=== PATIENT | male | born 1945 | race Caucasian/White ===

== ENCOUNTER 2020-02-07 12:38 | Inpatient (IN) | payer MEDICARE, SELFPAY ==
[2020-02-07 12:53] VITALS: PULSE 86; RESP 16; O2SAT 95; BMI 26.6
[2020-02-07 13:03] VITALS: BMI 26.6
[2020-02-07 13:05] VITALS: BP 152/79; PULSE 86; RESP 16; TEMP 37; O2SAT 95
--- NOTE | 2020-02-07 14:43 | PCM.HP.STD ---
Problem List (1) Debility Status: Acute (2) Pneumoperitoneum Status: Acute (3) Gastric perforation Status: Acute (4) Acute blood loss anemia Status: Acute (5) Septic shock Status: Acute (6) Hypertension Status: Chronic (7) Coronary artery disease Status: Chronic (8) Osteoarthritis Status: Chronic (9) Hyperlipidemia Status: Chronic (10) Diabetes mellitus Status: Chronic (11) Depression Status: Chronic (12) Hypothyroidism Status: Chronic History of Present Illness Date of Admission: 02/07/20 Chief Complaint: Here for rehabilitation, strengthening, prior to discharge home with . The patient is a 74 year old Male with below past medical history with followin01/26/2020 Admit to [facility]. Right lower quadrant abdominal pain, progressively worse at outside hospital. CT scan abdomen/pelvis showed air, fluid in abdomen. 6 Liters IV fluids, 3 units PRBC, 2 units Fresh Frozen Plasma for Hemoglobin 4.5. COVID negative. Fentanyl 175MCG, Morphine 4MG, Ancef given prior to transfer to [facility]. 01/26/2020 Operating Room revealed large perforation at pylorus. Modified Tanmay patch repair with pyloroplasty. 01/27/2020 Echo Left ventricle normal. EF 43%. Left ventricular systolic function mildly decreased. Grade 1 diastolic dysfunction. Right ventricular systolic pressure 50mm HG. 01/28/2020 Tube feeding. 01/28/2020 Troponin elevated due to demand ischemia. Stop IV fluids due to fluid overload. 01/28/2020 Infectious Disease consulted, on Meropenem, Micafungin. Culture grew Leclercia Adecarboxylata Micafungin 5 days postop. Continue Meropenem. 02/02/2020 Infectious Disease recommended IV Unasyn, Probiotic. Tube feeding at 60ML/hour. Replete phosphorus. Zyprexa for agitation. 02/07/2020 Admit to TCU with debility, here for rehabilitation, strengthening, prior to discharge home with . Past Medical History Past Medical History (Chronic Problems): Chronic Problems Hypertension (Chronic) Coronary artery disease (Chronic) Osteoarthritis (Chronic) Hyperlipidemia (Chronic) Diabetes mellitus (Chronic) Depression (Chronic) Hypothyroidism (Chronic) Home Medications: Ambulatory Orders Medication Instructions Recorded Acetaminophen [Tylenol] 325 mg PO Q4H PRN PRN 02/07/20 Aspirin E.C. [Ecotrin] 81 mg PO DAILY@0800 05/23/20 Aspirin E.C. [Ecotrin] 325 mg PO DAILY@0800 02/07/20 Atorvastatin Calcium [Lipitor] 80 mg PO DAILY 02/07/20 Ciprofloxacin [Cipro] 500 mg PO BID 02/07/20 Cod Liver Oil/Zinc Oxide [Desitin 1 applicatio TOPICAL PRN 02/07/20 Diaper Rash 40% Paste] Dextrose 5%/0.9% NaCl 25 ml IV PRN 02/07/20 Dextrose [Trueplus Glucose] 15 gm PO PRN 02/07/20 Enalapril Maleate [Vasotec] 5 mg PO DAILY 02/07/20 Escitalopram Oxalate [Lexapro] 10 mg PO DAILY 02/07/20 Glucagon [(None)] 1 mg IM PRN 02/07/20 Heparin Sodium,Porcine/Pf [Heparin 5,000 unit SUBCUT BID 02/07/20 5 Unit/5 ml (1/ml) Syr] Insulin Regular, Human [Novolin R See Protocol SUBCUT ACHS 02/07/20 Flexpen] L. Rhamnosus GG/Inulin [Culturelle 1 ea PO DAILY 02/07/20 Probiotics Capsule] Levothyroxine [Synthroid] 75 mcg PO DAILY 02/07/20 Metoprolol Succinate [Toprol Xl] 25 mg PO BID 02/07/20 Metoprolol Succinate [Toprol Xl] 50 mg PO DAILY 02/07/20 Metoprolol Tartrate 5 mg IV Q4H PRN PRN 02/07/20 Metronidazole [Flagyl] 500 mg PO TID 02/07/20 Mupirocin [Bactroban] 1 applic TOPICAL BID 02/07/20 Olanzapine [Zyprexa Zydis] 0.5 mg PO QHS PRN 02/07/20 Ondansetron [Zofran] 4 mg IV Q4H PRN PRN 02/07/20 Oxycodone HCl [Roxicodone] 5 mg PO [id number] PRN 02/07/20 Pantoprazole Sodium [Protonix] 40 mg PO DAILY 02/07/20 metFORMIN HCl [Glucophage] 500 mg PO BIDCM 02/07/20 Surgical History: angioplasty - Stent x 2., - - Arthroscopic knee surgery. Psychiatric History: Depression Lives: Spouse/ Significant Other Smoking Status: Former smoker Tobacco Use: Cigars Alcohol: Occasional Drugs: None - *Family History Maternal History Items: Heart Disease, - - Hypothyroidism. Paternal History Items: Heart Disease Sibling History Items: - - Thyroid. Review of Systems Constitutional: Denies: Chills, Fever, Weight Change HEENT: Denies: Head Aches, Sinus Congestion, Sinus Drainage Cardiovascular: Denies: Chest Pain, Palpitations Respiratory: Denies: Cough, Shortness of breath at rest, Sputum production Gastrointestinal: Denies: Abdominal Pain, Nausea, Vomiting Genitourinary: Denies: Dysuria Musculoskeletal: Denies: Joint Pain, Joint Tenderness Skin: Denies: Rash, Wounds Neurological: Denies: Numbness, Tingling, Focal weakness Psychiatric: Denies: Anxiety, Depression, Homicidal Ideations, Suicidal Ideations Hematologic/ Lymphatic: Denies: Easy Bruising, Easy Bleeding VTE Information - Inpt Only VTE Present on Admission: No VTE Mechan Device Prophylaxis: Knee High NEIDA Hose VTE Pharm Prophylaxis ordered?: Yes Patient Problems: Active and Suspected Problems Debility (Acute) Pneumoperitoneum (Acute) Gastric perforation (Acute) Acute blood loss anemia (Acute) Septic shock (Acute) - Physical Exam Vitals/I&O's: Vital Signs Temp Pulse Resp BP Pulse Ox 98.6 F 86 16 152/79 H 95 02/07/20 13:05 02/07/20 13:05 02/07/20 13:05 02/07/20 13:05 02/07/20 13:05 Oxygen Delivery Method Room Air Weight: 81.42 kg Body Mass Index (BMI) 26.6 General: Alert, Oriented x3, Cooperative HEENT: Atraumatic, PERRLA, EOMI, Normocephalic Neck: Supple, No JVD, Negative Carotid Bruits Lungs: Clear to auscultation, Normal air movement Cardiovascular: Regular rate, No murmurs Abdomen: Bowel Sounds Present, Soft, Non Tender Extremities: No edema, Capillary Refill Less than 3 Seconds Skin: No rashes, No breakdown Musculoskeletal: No Tenderness to Palpation of Joints or Extremities Neurological: Cranial nerves II-XII grossly intact Psych/Mental Status: Normal Affect, Appropriate Current Medications Aspirin (Ecotrin) 81 mg PO DAILY@0800 [facility] Aspirin (Ecotrin) 325 mg PO DAILY@0800 [facility] Atorvastatin Calcium (Lipitor) 80 mg PO DAILY [facility] Ciprofloxacin HCl (Cipro) 500 mg PO BID [facility] Dextrose/Sodium Chloride (Dextrose 5%/0.9% Nacl) 25 ml IV DAILY PRN PRN Reason: Low blood sugar Glucagon () 1 mg IM DAILY PRN PRN Reason: Blood glucose Levothyroxine Sodium (Synthroid) 75 mcg PO DAILY [facility] Metformin [facility]ophage) [address] [facility] Metoprolol Succinate (Toprol Xl (Beta Carmelina)) 50 mg PO DAILY [facility] Metoprolol Succinate (Toprol Xl (Beta Carmelina)) 25 mg PO BID [facility] Metoprolol Tartrate (Lopressor (Beta Carmelina)) 5 mg IV Q4H PRN PRN PRN Reason: BLOOD PRESSURE Metronidazole (Flagyl) 500 mg PO TID [facility] Mupirocin (Bactroban) 1 applic TOPICAL BID [facility]; Protocol Non-Formulary Medication (Acetaminophen [Tylenol]) 325 mg PO Q4H PRN PRN PRN Reason: Pain or Fever Non-Formulary Medication (Cod Liver Oil/Zinc Oxide [Desitin Diaper Rash 40% Paste]) 1 applicatio topical DAILY PRN PRN Reason: skin Non-Formulary Medication (Dextrose [Trueplus Glucose]) 15 gm PO DAILY PRN PRN Reason: low blood sugar Non-Formulary Medication (Heparin Sodium,Porcine/Pf [Heparin 5 Unit/5 Ml (1/Ml) Syr]) 5,000 unit subcut BID [facility] Non-Formulary Medication (Insulin Regular, Human [Novolin R Flexpen]) 0 unit subcut ACHS [facility] Non-Formulary Medication (L. Rhamnosus Gg/Inulin [Culturelle Digest 10b Cell Cap]) 1 ea PO DAILY [facility] Olanzapine (Zyprexa Zydis) 0.5 mg PO QHS PRN PRN Reason: INSOMNIA Ondansetron HCl (Zofran) 4 mg IV Q4H PRN PRN PRN Reason: NAUSEA Oxycodone HCl (Oxyir) 5 mg PO [id number] PRN PRN Reason: Pain or Fever Pantoprazole Sodium (Protonix) 40 mg PO DAILY [facility] Tuberculin PPD (Tubersol, Aplisol, Ppd) 5 tu ID X1 ONE Stop: 02/08/20 10:01 Tuberculin PPD (Tubersol, Aplisol, Ppd) 5 tu ID X1 ONE Stop: 02/15/20 10:01 Assessment/Plan All Active Problems Debility (Acute) Pneumoperitoneum (Acute) Gastric perforation (Acute) Acute blood loss anemia (Acute) Septic shock (Acute) 74 year old male with below past medical history hospitalized for gastric perforation, underwent Tanmay patch repair with pyloroplasty 01/26/2020, admitted to TCU with debility, here for rehabilitation, strengthening, prior to discharge home with . Debility - PT/OT. Pain - Tylenol 1000MG Q6H PRN pain (1-3), Oxycodone 5MG Q4H PRN pain (4-10). Bowel - Miralax 17GM daily, Senna/colace 1 tablet BID, Dulcolax 10MG daily PRN. Adult immunization - Administer Prevnar 13, Pneumovax 23, Fluzone as appropriate. DVT prophylaxis - Lovenox 40MG SC daily. Coronary Artery Disease - Metoprolol succinate 75MG AM, 25MG PM, Aspirin 81MG daily. Hyperlipidemia - Atorvastatin 80MG QHS. Infectious Disease - Cipro 500MG BID, Flagyl 500MG TID x 4 days, Lactobacillus 1 tablet daily. Hypothyroidism - Levothyroxine 75MCG daily. Diabetes Mellitus II - Metformin 500MG BID. Skin irritation - Bacitracin ointment topical BID. Agitation - Zyban 0.5MG QHS PRN, GDR shortly. Nausea - Zofran 4MG IV Q4H PRN. GERD - Pantoprazole 40MG daily.
[2020-02-07] MEDS: metroNIDAZOLE 500 MG Tablet PO ×2 (16:05→20:32)
[2020-02-07 17:00] LABS: Bedside Glucose 88 mg/dL (70-110)
[2020-02-07] MEDS: Mupirocin Ointment 22gm Tube 1 APPLIC TOPICAL (17:18)
[2020-02-07] MEDS: Senna/Docusate Sodium 1 Tablet PO (17:18)
[2020-02-07] MEDS: metFORMIN HCl 500 MG Tablet PO (17:18)
[2020-02-07] MEDS: Ciprofloxacin 500 MG Tablet PO (17:18)
[2020-02-07] MEDS: OLANZapine 5 MG/TAB TAB.RAPDIS 2.5 MG PO (20:34)
[2020-02-07 21:21] LABS: Bedside Glucose 117 mg/dL (70-110)
[2020-02-08] MEDS: Atorvastatin Calcium 80 MG Tablet PO (05:13)
[2020-02-08] MEDS: Senna/Docusate Sodium 1 Tablet PO (05:13)
[2020-02-08 05:14] VITALS: BP 145/76; PULSE 79
[2020-02-08] MEDS: Levothyroxine 75 MCG Tablet PO (05:14)
[2020-02-08] MEDS: Enoxaparin 40 MG/0.4 ML Syringe SC (05:14)
[2020-02-08] MEDS: metroNIDAZOLE 500 MG Tablet PO ×3 (05:14→21:42)
[2020-02-08] MEDS: Ciprofloxacin 500 MG Tablet PO ×2 (05:14→17:15)
[2020-02-08] MEDS: Polyethylene Glycol 3350 17 GM PACKET PO (05:14)
[2020-02-08] MEDS: Metoprolol(XL)Succ 50 MG Tablet PO (05:14)
[2020-02-08] MEDS: Glucerna Shake 120 ML LIQUID PO ×4 (05:17→21:41)
[2020-02-08] MEDS: Mupirocin Ointment 22gm Tube 1 APPLIC TOPICAL ×2 (05:18→17:16)
[2020-02-08] MEDS: Pantoprazole Sodium 40 MG Tablet PO (05:19)
[2020-02-08 05:24] VITALS: BP 145/76; PULSE 79; RESP 16; TEMP 36.4; O2SAT 94
[2020-02-08 06:21] LABS: Bedside Glucose 100 mg/dL (70-110)
[2020-02-08 06:27] LABS: Absolute Lymphocyte Count 0.87 X10^3/uL (0.83-4.51); Absolute Neutrophil Count 2.8 X10^3/uL (2.0-7.7); Basophil# 0.05 X10^3/uL; Basophil% 1.1 % (0-1); Eosinophil# 0.21 X10^3/uL; Eosinophils% 4.8 % (0-5); Hematocrit 31.9 % (40-54); Hemoglobin 9.3 g/dL (13.0-16.5); Lymphocyte # 0.87 X10^3/ul (4.0); Mean Corp Hgb Conc 29.2 g/dL (32-36); Mean Corpuscular Hgb 23.7 pg (27.0-32.0); Mean Corpuscular Volume 81.4 fL (80-94); Mean Platelet Vol. 10.6 fl (6.2-12.0); Monocyte# 0.36 X10^3/uL; Monocyte% 8.3 % (0-10); NRBC Flagged by Analyzer 0 % (0-5); Neutrophil # 2.84 X10^3/uL (2.7-7.7); Neutrophil % 65.1 % (47-70); POSITIVE MORPHOLOGY YES; Platelet Count 447 K/mm3 (150-450); Red Blood Count 3.92 M/mm3 (4.6-6.2); White Blood Count 4.4 K/mm3 (4.4-11.0)
[2020-02-08 06:28] LABS: Differential Indicated SCAN CRITERIA MET
[2020-02-08 06:35] LABS: Anion Gap 6 (5-15); BUN 16 mg/dL (7-18); BUN/Creat Ratio 18.8 RATIO (10-20); Calcium,Total 8.7 mg/dL (8.5-10.1); Chloride 110 mmol/L (98-107); Creatinine, Serum 0.85 mg/dL (0.70-1.30); EST Glomerular Filtration Rate 93 mL/min (>60); Est Glom Filt Rate - Afr Amer 113 mL/min (>60); Estimated Creatinine Clearance 74.88 ml/min; Glucose 95 mg/dL (74-106); Potassium 4.1 mmol/L (3.5-5.1); Sodium Level 139 mmol/L (136-145)
[2020-02-08 06:43] LABS: Anisocytosis 2+; Differential Comment SCANNED; Hypochromasia 1+; Macrocytosis RARE; Microcytosis RARE; Poikilocytosis 2+; Polychromasia 1+
[2020-02-08 06:44] LABS: Ovalocyte RARE
[2020-02-08] MEDS: Aspirin E.C. 81 MG Tablet PO (07:33)
[2020-02-08] MEDS: metFORMIN HCl 500 MG Tablet PO ×2 (07:33→17:15)
[2020-02-08] MEDS: Tuberculin,Purif.prot.deriv. 50 TU/ML Vial 5 ML ID (10:35)
[2020-02-08 11:31] LABS: Bedside Glucose 92 mg/dL (70-110)
[2020-02-08 14:29] VITALS: BP 128/63; PULSE 77; RESP 20; TEMP 36.7; O2SAT 96
[2020-02-08 16:16] LABS: Bedside Glucose 93 mg/dL (70-110)
[2020-02-08] MEDS: Acetaminophen 500 MG Tablet 1000 MG PO (21:45)
[2020-02-08 21:51] LABS: Bedside Glucose 143 mg/dL (70-110)
--- NOTE | 2020-02-09 00:32 | NURSING ---
changed dressings per order, pt tolerated well.
[2020-02-09 05:26] VITALS: BP 164/89; PULSE 80; RESP 14; TEMP 36.8; O2SAT 97
[2020-02-09 05:33] VITALS: BP 164/89; PULSE 80
[2020-02-09] MEDS: Senna/Docusate Sodium 1 Tablet PO (05:33)
[2020-02-09] MEDS: Metoprolol(XL)Succ 50 MG Tablet PO (05:33)
[2020-02-09] MEDS: Levothyroxine 75 MCG Tablet PO (05:33)
[2020-02-09] MEDS: metroNIDAZOLE 500 MG Tablet PO ×3 (05:33→21:05)
[2020-02-09] MEDS: Enoxaparin 40 MG/0.4 ML Syringe SC (05:33)
[2020-02-09] MEDS: Atorvastatin Calcium 80 MG Tablet PO (05:33)
[2020-02-09] MEDS: Ciprofloxacin 500 MG Tablet PO ×2 (05:33→17:33)
[2020-02-09] MEDS: Polyethylene Glycol 3350 17 GM PACKET PO (05:33)
[2020-02-09] MEDS: Pantoprazole Sodium 40 MG Tablet PO (05:33)
[2020-02-09] MEDS: Glucerna Shake 120 ML LIQUID PO ×4 (05:33→21:04)
[2020-02-09] MEDS: Mupirocin Ointment 22gm Tube 1 APPLIC TOPICAL ×2 (05:35→17:34)
[2020-02-09 06:41] LABS: Bedside Glucose 92 mg/dL (70-110)
[2020-02-09] MEDS: metFORMIN HCl 500 MG Tablet PO ×2 (07:42→17:33)
[2020-02-09] MEDS: Aspirin E.C. 81 MG Tablet PO (07:42)
[2020-02-09] MEDS: Iron Polysaccharide Complex 150 MG CAPSULE PO (07:42)
[2020-02-09 09:04] VITALS: PULSE 80; RESP 16; O2SAT 98
[2020-02-09 11:25] LABS: Bedside Glucose 129 mg/dL (70-110)
--- NOTE | 2020-02-09 12:47 | NURSING ---
Call placed to patients significant other, no answer and unable to leave a message d/t voicemail not being setup.
[2020-02-09 14:29] VITALS: BP 138/71; PULSE 76; RESP 14; TEMP 36.6; O2SAT 97
[2020-02-09 17:05] LABS: Bedside Glucose 107 mg/dL (70-110)
[2020-02-09 21:30] LABS: Bedside Glucose 103 mg/dL (70-110)
[2020-02-10 04:23] VITALS: BP 135/65; PULSE 74; RESP 16; TEMP 36.9; O2SAT 95
[2020-02-10 06:01] VITALS: PULSE 80
[2020-02-10] MEDS: Levothyroxine 75 MCG Tablet PO (06:01)
[2020-02-10] MEDS: Enoxaparin 40 MG/0.4 ML Syringe SC (06:01)
[2020-02-10] MEDS: Metoprolol(XL)Succ 50 MG Tablet PO (06:01)
[2020-02-10] MEDS: Ciprofloxacin 500 MG Tablet PO ×2 (06:02→17:37)
[2020-02-10] MEDS: Atorvastatin Calcium 80 MG Tablet PO (06:02)
[2020-02-10] MEDS: Senna/Docusate Sodium 1 Tablet PO ×2 (06:02→17:37)
[2020-02-10] MEDS: Polyethylene Glycol 3350 17 GM PACKET PO (06:03)
[2020-02-10] MEDS: metroNIDAZOLE 500 MG Tablet PO ×3 (06:04→21:13)
[2020-02-10] MEDS: Mupirocin Ointment 22gm Tube 1 APPLIC TOPICAL (06:05)
[2020-02-10] MEDS: Glucerna Shake 120 ML LIQUID PO ×4 (06:09→21:37)
[2020-02-10] MEDS: Menthol/Lanolin/Calamine/Znox 113 GM Tube 1 APPLIC TOPICAL ×2 (06:10→21:13)
[2020-02-10 06:21] LABS: Bedside Glucose 90 mg/dL (70-110)
[2020-02-10] MEDS: Pantoprazole Sodium 40 MG Tablet PO (06:52)
--- NOTE | 2020-02-10 08:12 | PCM.PN.RX ---
<Elijah Oden C - Last Filed: 02/10/20 08:12> Progress Note - Pharmacy Subjective: [] TCU Admission Objective: Allergies No Known Allergies Allergy (Verified 02/07/20 15:22) Current Medications Generic Name Dose Route Start Last Admin Trade Name Freq PRN Reason Stop Dose Admin Acetaminophen 1,000 mg 02/07/20 15:06 02/08/20 21:45 Tylenol PO 1,000 mg Q6H PRN PRN Administration Pain Score 1-3/10 Aspirin 81 mg 02/08/20 08:00 02/09/20 07:42 Ecotrin PO 81 mg DAILY@0800 TAYE Administration Atorvastatin Calcium 80 mg 02/08/20 06:00 02/10/20 06:02 Lipitor PO 80 mg DAILY TAYE Administration Bisacodyl 10 mg 02/07/20 15:09 Dulcolax PO DAILY PRN PRN Constipation Calamine/Phenol 1 applic 02/10/20 06:00 02/10/20 06:10 Calmoseptine Ointment TOPICAL 1 applicatio 0600,2200 TAYE Administration Protocol Ciprofloxacin HCl 500 mg 02/07/20 18:00 02/10/20 06:02 Cipro PO 02/11/20 06:01 500 mg BID TAYE Administration Enoxaparin Sodium 40 mg 02/08/20 06:00 02/10/20 06:01 Lovenox SC 40 mg DAILY@0600 TAYE Administration Glucagon 1 mg 02/07/20 13:53 IM DAILY PRN Blood glucose Lactobacillus Acidophilus 1 tablet 02/07/20 18:00 02/10/20 06:05 Acidophilus PO 1 tablet BID TAYE Administration Levothyroxine Sodium 75 mcg 02/08/20 06:00 02/10/20 06:01 Synthroid PO 75 mcg DAILY TAYE Administration Metformin HCl 500 mg 02/07/20 17:00 02/09/20 17:33 Glucophage PO 500 mg BIDCM TAYE Administration Metoprolol Succinate 50 mg 02/08/20 06:00 02/10/20 06:01 Toprol Xl (Beta Carmelina) PO 50 mg DAILY TAYE Administration Metronidazole 500 mg 02/07/20 14:00 02/10/20 06:04 Flagyl PO 02/11/20 06:01 500 mg TID TAYE Administration Mupirocin 1 applic 02/07/20 18:00 02/10/20 06:05 Bactroban TOPICAL 1 applicatio BID TAYE Administration Protocol Nutritional Formula (Lactose Free) 120 ml 02/08/20 06:00 02/10/20 06:09 Glucerna Shake PO 120 ml 4X/DAY TAYE Administration Olanzapine 2.5 mg 02/07/20 13:53 02/07/20 20:34 Zyprexa Zydis PO 2.5 mg QHS PRN Administration INSOMNIA Ondansetron HCl 4 mg 02/07/20 13:53 Zofran IV Q4H PRN PRN NAUSEA Oxycodone HCl 5 mg 02/07/20 15:09 Oxyir PO Q4H PRN PRN Pain Score 4-10/10 Pantoprazole Sodium 40 mg 02/08/20 06:00 02/10/20 06:52 Protonix PO 40 mg DAILY TAYE Administration Polyethylene Glycol 17 gm 02/08/20 06:00 02/10/20 06:03 Miralax PO 17 gm DAILY TAYE Administration Polysaccharide Iron Complex 150 mg 02/09/20 08:00 02/09/20 07:42 Ferrex 150 PO 03/10/20 08:01 150 mg DAILYCM TAYE Administration Senna/Docusate Sodium 1 tablet 02/07/20 18:00 02/10/20 06:02 Senokot-S, Celeste-Colace PO 1 tablet BID TAYE Administration Sodium Chloride 250 ml 02/07/20 18:49 IV PRN PRN IV flush Tuberculin PPD 5 tu 02/15/20 10:00 Tubersol, Aplisol, Ppd ID 02/15/20 10:01 X1 ONE Problem List Debility (Acute) Pneumoperitoneum (Acute) Gastric perforation (Acute) Acute blood loss anemia (Acute) Septic shock (Acute) Hypertension (Chronic) Coronary artery disease (Chronic) Osteoarthritis (Chronic) Hyperlipidemia (Chronic) Diabetes mellitus (Chronic) Depression (Chronic) Hypothyroidism (Chronic) Vital Signs Temp Pulse Resp BP Pulse Ox 98.4 F 80 16 135/65 H 95 02/10/20 04:23 02/10/20 06:01 02/10/20 04:23 02/10/20 04:23 02/10/20 04:23 Oxygen Delivery Method Room Air Weight: 81.42 kg Body Mass Index (BMI) 26.6 Sodium 139 mmol/L (136-145) 02/08/20 05:30 Potassium 4.1 mmol/L (3.5-5.1) 02/08/20 05:30 Chloride 110 mmol/L (98-107) H 02/08/20 05:30 Carbon Dioxide 23.0 mmol/L (21.0-32.0) 02/08/20 05:30 Anion Gap 6 (5-15) 02/08/20 05:30 BUN 16 mg/dL (7-18) 02/08/20 05:30 Creatinine 0.85 mg/dL (0.70-1.30) 02/08/20 05:30 Est GFR (MDRD) Af Amer 113 mL/min (>60) 02/08/20 05:30 Est GFR (MDRD) Non-Af 93 mL/min (>60) 02/08/20 05:30 BUN/Creatinine Ratio 18.8 RATIO (10-20) 02/08/20 05:30 Glucose 95 mg/dL (74-106) 02/08/20 05:30 Assessment/Plan: 1) Pain: Acetaminophen 1000mg po q6h prn for pain 1-3, Oxycodone 5mg po q4h prn for pain 4-06/26. Please continue to monitor prn usage and for signs/symptoms of increased pain. *2) Hyperlipidemia: Atorvastatin 80mg po daily. I could not find a recent LFT or Lipid Panel in the pt's chart. Please consider a yearly LFT and Lipid Panel while the pt is on a statin. Thanks *3) GERD: Pantoprazole 40mg po daily. retirement use of PPIs can impede vitamin absorption. Please consider a yearly magnesium level. Thanks 4) Diabetes: Metformin 500mg po bid with food. Pt's GFR is 93 and average BS is 104.9. Please continue to monitor. *5) Hypothyroidism: Levothyroxine 75mcg po daily. I could not find a recent TSH in the pt's chart. Please consider a TSH while the pt is on Levothyroxine. Thanks 6) Nausea: Ondansetron 4mg iv q4h prn for nausea. Please continue to monitor prn usage and for signs/symptoms of increased/decreased nausea. 7) CAD: Metoprolol Succinate 50mg po daily, Aspirin 81mg po daily. Pt's average BP is 146.4/76. Please continue to monitor. Pt's average pulse is 79.7. Please continue to monitor. 8) DVT Prophylaxis: Enoxaparin 40mg subq daily. Pt's SrCr is 0.85, CrCl is 74.88, and Plts are 447. Please continue to monitor *9) Hypertension (chronic): Pt has a listed diagnosis of Chronic Hypertension for which he took Enalapril 5mg po daily. Enalapril 5mg po daily was not continue to his current orders. CAPO-I are also renal protective in diabetic pt's. Please re-evaluate the need for Enalapril 5mg. Thanks Psychotropic Medications: *Agitation: Zyban 0.5mg po qhs prn. --Medication on the pt's MAR is ZYPREXA 2.5mg (0.5 Tablet of a 5mg tablet). Please re-evaluate whether the pt is to be on ZYBAN 0.5 MG or ZYPREXA 2.5 MG. Thanks Unnecessary Medications: Bowel Regimen: Bisacodyl 10mg po daily prn for constipation, Miralax 17gm po daily, Senna/Docusate 1 tablet po bid. Please continue to monitor prn usage and for signs/symptoms of constipation/diarrhea. Date of Note:: 02/10/20 - Provider Comments Provider responsibility: Provider responsible to enter orders to implement recommendations <Piero Pang Chi - Last Filed: 02/10/20 17:28> Progress Note - Pharmacy Subjective: [] Objective: Allergies No Known Allergies Allergy (Verified 02/07/20 15:22) Current Medications Generic Name Dose Route Start Last Admin Trade Name Freq PRN Reason Stop Dose Admin Acetaminophen 1,000 mg 02/07/20 15:06 02/10/20 13:44 Tylenol PO 1,000 mg Q6H PRN PRN Administration Pain Score 1-3/10 Aspirin 81 mg 02/08/20 08:00 02/10/20 09:10 Ecotrin PO 81 mg DAILY@0800 TAYE Administration Atorvastatin Calcium 80 mg 02/08/20 06:00 02/10/20 06:02 Lipitor PO 80 mg DAILY TAYE Administration Bisacodyl 10 mg 02/07/20 15:09 Dulcolax PO DAILY PRN PRN Constipation Calamine/Phenol 1 applic 02/10/20 06:00 02/10/20 06:10 Calmoseptine Ointment TOPICAL 1 applicatio 0600,2200 [facility] Administration Protocol Ciprofloxacin HCl 500 mg 02/07/20 18:00 02/10/20 06:02 Cipro PO 02/11/20 06:01 500 mg BID TAYE Administration Enoxaparin Sodium 40 mg 02/08/20 06:00 02/10/20 06:01 Lovenox SC 40 mg DAILY@0600 TAYE Administration Glucagon 1 mg 02/07/20 13:53 IM DAILY PRN Blood glucose Lactobacillus Acidophilus 1 tablet 02/07/20 18:00 02/10/20 06:05 Acidophilus PO 1 tablet BID [facility] Administration Levothyroxine Sodium 75 mcg 02/08/20 06:00 02/10/20 06:01 Synthroid PO 75 mcg DAILY TAYE Administration Metformin HCl 500 mg 02/07/20 17:00 02/10/20 09:10 Glucophage PO 500 mg BIDCM TAYE Administration Metoprolol Succinate 50 mg 02/08/20 06:00 02/10/20 06:01 Toprol Xl (Beta Carmelina) PO 50 mg DAILY TAYE Administration Metronidazole 500 mg 02/07/20 14:00 02/10/20 13:42 Flagyl PO 02/11/20 06:01 500 mg TID [facility] Administration Mupirocin 1 applic 02/07/20 18:00 02/10/20 06:05 Bactroban TOPICAL 1 applicatio BID [facility] Administration Protocol Nutritional Formula (Lactose Free) 120 ml 02/08/20 06:00 02/10/20 11:41 Glucerna Shake PO 120 ml 4X/DAY TAYE Administration Olanzapine 2.5 mg 02/07/20 13:53 02/07/20 20:34 Zyprexa Zydis PO 2.5 mg QHS PRN Administration INSOMNIA Ondansetron HCl 4 mg 02/07/20 13:53 Zofran IV Q4H PRN PRN NAUSEA Oxycodone HCl 5 mg 02/07/20 15:09 Oxyir PO Q4H PRN PRN Pain Score 4-10/10 Pantoprazole Sodium 40 mg 02/08/20 06:00 02/10/20 06:52 Protonix PO 40 mg DAILY TAYE Administration Polyethylene Glycol 17 gm 02/08/20 06:00 02/10/20 06:03 Miralax PO 17 gm DAILY TAYE Administration Polysaccharide Iron Complex 150 mg 02/09/20 08:00 02/10/20 09:10 Ferrex 150 PO 03/10/20 08:01 150 mg DAILYCM TAYE Administration Senna/Docusate Sodium 1 tablet 02/07/20 18:00 02/10/20 06:02 Senokot-S, Celeste-Colace PO 1 tablet BID TAYE Administration Sodium Chloride 250 ml 02/07/20 18:49 IV PRN PRN IV flush Tuberculin PPD 5 tu 02/15/20 10:00 Tubersol, Aplisol, Ppd ID 02/15/20 10:01 X1 ONE Problem List Debility (Acute) Pneumoperitoneum (Acute) Gastric perforation (Acute) Acute blood loss anemia (Acute) Septic shock (Acute) Hypertension (Chronic) Coronary artery disease (Chronic) Osteoarthritis (Chronic) Hyperlipidemia (Chronic) Diabetes mellitus (Chronic) Depression (Chronic) Hypothyroidism (Chronic) Vital Signs Temp Pulse Resp BP Pulse Ox 97.7 F L 77 14 124/66 H 95 02/10/20 15:59 02/10/20 15:59 02/10/20 15:59 02/10/20 15:59 02/10/20 15:59 Oxygen Delivery Method Room Air Weight: 81.42 kg Body Mass Index (BMI) 26.6 Sodium 139 mmol/L (136-145) 02/08/20 05:30 Potassium 4.1 mmol/L (3.5-5.1) 02/08/20 05:30 Chloride 110 mmol/L (98-107) H 02/08/20 05:30 Carbon Dioxide 23.0 mmol/L (21.0-32.0) 02/08/20 05:30 Anion Gap 6 (5-15) 02/08/20 05:30 BUN 16 mg/dL (7-18) 02/08/20 05:30 Creatinine 0.85 mg/dL (0.70-1.30) 02/08/20 05:30 Est GFR (MDRD) Af Amer 113 mL/min (>60) 02/08/20 05:30 Est GFR (MDRD) Non-Af 93 mL/min (>60) 02/08/20 05:30 BUN/Creatinine Ratio 18.8 RATIO (10-20) 02/08/20 05:30 Glucose 95 mg/dL (74-106) 02/08/20 05:30 Assessment/Plan: Psychotropic Medications: Unnecessary Medications: Bowel Regimen: - Provider Comments Provider responsibility: Provider responsible to enter orders to implement recommendations Provider Comments to Recommendations by Pharmacy: Agree
[2020-02-10] MEDS: Iron Polysaccharide Complex 150 MG CAPSULE PO (09:10)
[2020-02-10] MEDS: metFORMIN HCl 500 MG Tablet PO ×2 (09:10→17:37)
[2020-02-10] MEDS: Aspirin E.C. 81 MG Tablet PO (09:10)
[2020-02-10 11:16] LABS: Bedside Glucose 114 mg/dL (70-110)
[2020-02-10] MEDS: Acetaminophen 500 MG Tablet 1000 MG PO (13:44)
[2020-02-10 15:59] VITALS: BP 124/66; PULSE 77; RESP 14; TEMP 36.5; O2SAT 95
[2020-02-10 17:11] LABS: Bedside Glucose 100 mg/dL (70-110)
[2020-02-10 21:15] LABS: Bedside Glucose 105 mg/dL (70-110)
[2020-02-10 21:35] VITALS: PULSE 72; RESP 16; O2SAT 98
[2020-02-11] MEDS: Glucerna Shake 120 ML LIQUID PO ×4 (06:08→21:02)
[2020-02-11] MEDS: Levothyroxine 75 MCG Tablet PO (06:09)
[2020-02-11] MEDS: Pantoprazole Sodium 40 MG Tablet PO (06:09)
[2020-02-11] MEDS: Ciprofloxacin 500 MG Tablet PO (06:09)
[2020-02-11 06:10] VITALS: PULSE 75
[2020-02-11] MEDS: Metoprolol(XL)Succ 50 MG Tablet PO (06:10)
[2020-02-11] MEDS: Mupirocin Ointment 22gm Tube 1 APPLIC TOPICAL (06:10)
[2020-02-11] MEDS: Atorvastatin Calcium 80 MG Tablet PO (06:10)
[2020-02-11] MEDS: Menthol/Lanolin/Calamine/Znox 113 GM Tube 1 APPLIC TOPICAL ×2 (06:11→21:02)
[2020-02-11] MEDS: metroNIDAZOLE 500 MG Tablet PO (06:13)
[2020-02-11] MEDS: Enoxaparin 40 MG/0.4 ML Syringe SC (06:14)
[2020-02-11 06:15] LABS: Bedside Glucose 89 mg/dL (70-110)
[2020-02-11 06:18] VITALS: BP 142/75; PULSE 75; RESP 16; TEMP 36.6; O2SAT 97
[2020-02-11] MEDS: metFORMIN HCl 500 MG Tablet PO ×2 (08:15→17:22)
[2020-02-11] MEDS: Aspirin E.C. 81 MG Tablet PO (08:15)
[2020-02-11] MEDS: Iron Polysaccharide Complex 150 MG CAPSULE PO (08:15)
[2020-02-11] MEDS: Acetaminophen 500 MG Tablet 1000 MG PO (10:28)
[2020-02-11 11:20] LABS: Bedside Glucose 120 mg/dL (70-110)
--- NOTE | 2020-02-11 11:38 | NURSING ---
PT STATED HE TALKED TO DAUGHTER AND THAT I DID NOT HAVE TO UP DATE ANY ONE.
[2020-02-11 13:20] VITALS: BP 98/63; PULSE 77; RESP 16; TEMP 36.8; O2SAT 95
--- NOTE | 2020-02-11 15:36 | CASEMGMT ---
Social Work IDT met with patient and daughter via conference call for care plan meeting. Discussed patient's progress in therapy. Pt is mod assist for transfers with FWW, ambulating 5 ft with FWW at min assist, min assist for bed mobility, total assist for all ADLS and toileting. Pt is incontinent of B&B which is not typical for pt, and needs some encouragement to get OOB. Pt's BIMS are 3/15 and dtr reported some memory issues prior to hospitalization. Referral made to for eval. Pt is enjoy FaceTiming with family, and 1:1 visits with Activities. Pt is on a regular, low fiber diet, mech soft and receiving med pass, weight is stable. Pt is out of room isolation 02/19. Pt lives with fiance' for the last 20 years and assists with medications, fiances' and yard work. She is petite so cannot assist physically. The goal is for pt to return home and family does not have an alternative plan. Explained insurance with [employer] 02/11 and continued stay is not guaranteed. Pt was able to walk with a cane and independent with toileting. Will continue to follow. Zoey Cordova, YESICA TREE DEADENER
[2020-02-11 17:01] LABS: Bedside Glucose 121 mg/dL (70-110)
[2020-02-11] MEDS: Senna/Docusate Sodium 1 Tablet PO (17:23)
[2020-02-11] MEDS: oxyCODONE 5 MG Tablet PO (21:02)
[2020-02-11 21:03] VITALS: PULSE 78; RESP 16; O2SAT 97
[2020-02-11 21:11] LABS: Bedside Glucose 126 mg/dL (70-110)
[2020-02-12] MEDS: oxyCODONE 5 MG Tablet PO ×2 (01:37→21:43)
[2020-02-12 05:24] VITALS: BP 130/72; PULSE 75
[2020-02-12] MEDS: Levothyroxine 75 MCG Tablet PO (05:24)
[2020-02-12] MEDS: Pantoprazole Sodium 40 MG Tablet PO (05:24)
[2020-02-12] MEDS: Metoprolol(XL)Succ 50 MG Tablet PO (05:24)
[2020-02-12] MEDS: Atorvastatin Calcium 80 MG Tablet PO (05:25)
[2020-02-12] MEDS: Enoxaparin 40 MG/0.4 ML Syringe SC (05:25)
[2020-02-12] MEDS: Glucerna Shake 120 ML LIQUID PO ×4 (05:25→21:42)
[2020-02-12] MEDS: Mupirocin Ointment 22gm Tube 1 APPLIC TOPICAL ×2 (05:27→17:48)
[2020-02-12] MEDS: Menthol/Lanolin/Calamine/Znox 113 GM Tube 1 APPLIC TOPICAL ×2 (05:28→21:44)
[2020-02-12 05:32] VITALS: BP 130/72; PULSE 75; RESP 16; TEMP 36.7; O2SAT 94
[2020-02-12 06:16] LABS: Bedside Glucose 84 mg/dL (70-110)
[2020-02-12] MEDS: Aspirin E.C. 81 MG Tablet PO (07:50)
[2020-02-12] MEDS: Iron Polysaccharide Complex 150 MG CAPSULE PO (07:50)
[2020-02-12] MEDS: metFORMIN HCl 500 MG Tablet PO ×2 (07:50→17:48)
[2020-02-12 11:10] LABS: Bedside Glucose 89 mg/dL (70-110)
[2020-02-12 14:56] VITALS: BP 128/71; PULSE 80; RESP 16; TEMP 35.9; O2SAT 97
[2020-02-12 21:26] LABS: Bedside Glucose 107 mg/dL (70-110)
[2020-02-12 21:44] VITALS: PULSE 82; O2SAT 95
[2020-02-13 05:58] VITALS: BP 132/77; PULSE 75
[2020-02-13] MEDS: Glucerna Shake 120 ML LIQUID PO ×3 (05:58→17:10)
[2020-02-13] MEDS: Metoprolol(XL)Succ 50 MG Tablet PO (05:58)
[2020-02-13] MEDS: Levothyroxine 75 MCG Tablet PO (05:58)
[2020-02-13] MEDS: Pantoprazole Sodium 40 MG Tablet PO (05:58)
[2020-02-13] MEDS: Atorvastatin Calcium 80 MG Tablet PO (05:58)
[2020-02-13] MEDS: Enoxaparin 40 MG/0.4 ML Syringe SC (06:01)
[2020-02-13] MEDS: Mupirocin Ointment 22gm Tube 1 APPLIC TOPICAL ×2 (06:02→17:08)
[2020-02-13] MEDS: Menthol/Lanolin/Calamine/Znox 113 GM Tube 1 APPLIC TOPICAL ×2 (06:02→22:30)
[2020-02-13 06:04] VITALS: RESP 18; TEMP 37.1; O2SAT 93
[2020-02-13 06:35] LABS: Bedside Glucose 100 mg/dL (70-110)
[2020-02-13] MEDS: Aspirin E.C. 81 MG Tablet PO (07:42)
[2020-02-13] MEDS: metFORMIN HCl 500 MG Tablet PO ×2 (07:42→17:07)
[2020-02-13] MEDS: Iron Polysaccharide Complex 150 MG CAPSULE PO (07:42)
--- NOTE | 2020-02-13 08:47 | CASEMGMT ---
Social Work BIMS and PHQ-9 completed for MDS assessment. Zoey Cordova, DAIRY FROZEN MANAGER [employer]
[2020-02-13 09:53] VITALS: PULSE 67; RESP 16; O2SAT 97
--- NOTE | 2020-02-13 10:08 | NURSING ---
pt is refusing to do occupational therapy today despite multiple attempts
[2020-02-13 11:00] LABS: Bedside Glucose 123 mg/dL (70-110)
[2020-02-13] MEDS: Acetaminophen 500 MG Tablet 1000 MG PO ×2 (11:23→18:54)
[2020-02-13] MEDS: oxyCODONE 5 MG Tablet PO ×2 (13:05→22:30)
--- NOTE | 2020-02-13 13:08 | MDS.RN ---
Pain interview for JOEY 02/14/20 completed.
[2020-02-13 14:09] VITALS: BP 107/68; PULSE 80; RESP 16; TEMP 36.8; O2SAT 98
--- NOTE | 2020-02-13 14:22 | NURSING ---
This nurse talked with outpatient receptionist [facility] and was told that appointment scheduled for today with infectious disease was cancelled stating Dr. Negrete's note said pt will be seen elsewhere. but was unable to tell this nurse who picking pt up as a patient or give anymore details, but she did confirm pt's virtual appointment with Dr. Musa blanket weaver on 03/02, and appointment with Dr. Shepard on 03/08. She stated pt had received an email with instructions on how to gain access to virtual appointment. Daughter and significant other stated pt does not have an email but they will look into it. Pt's daughter Rose Mary, and Pat significant other was updated with appointments given the doctors names, addresses and phone number for appointment.
[2020-02-13 17:25] LABS: Bedside Glucose 96 mg/dL (70-110)
[2020-02-13 21:26] LABS: Bedside Glucose 124 mg/dL (70-110)
[2020-02-14 05:37] VITALS: BP 135/74; PULSE 74; RESP 14; TEMP 36.7; O2SAT 96
[2020-02-14] MEDS: Glucerna Shake 120 ML LIQUID PO ×4 (05:40→21:09)
[2020-02-14] MEDS: Enoxaparin 40 MG/0.4 ML Syringe SC (05:42)
[2020-02-14 05:43] VITALS: BP 135/74; PULSE 74
[2020-02-14] MEDS: Metoprolol(XL)Succ 50 MG Tablet PO (05:43)
[2020-02-14] MEDS: Pantoprazole Sodium 40 MG Tablet PO (05:43)
[2020-02-14] MEDS: Levothyroxine 75 MCG Tablet PO (05:43)
[2020-02-14] MEDS: Atorvastatin Calcium 80 MG Tablet PO (05:44)
[2020-02-14] MEDS: Mupirocin Ointment 22gm Tube 1 APPLIC TOPICAL ×2 (05:44→17:32)
[2020-02-14] MEDS: Menthol/Lanolin/Calamine/Znox 113 GM Tube 1 APPLIC TOPICAL ×2 (05:44→21:10)
[2020-02-14 06:11] LABS: Bedside Glucose 96 mg/dL (70-110)
[2020-02-14] MEDS: metFORMIN HCl 500 MG Tablet PO ×2 (08:29→17:31)
[2020-02-14] MEDS: Iron Polysaccharide Complex 150 MG CAPSULE PO (08:29)
[2020-02-14] MEDS: Aspirin E.C. 81 MG Tablet PO (08:29)
[2020-02-14] MEDS: Acetaminophen 500 MG Tablet 1000 MG PO (08:58)
[2020-02-14 11:00] LABS: Bedside Glucose 88 mg/dL (70-110)
[2020-02-14 14:50] VITALS: BP 113/66; PULSE 77; RESP 18; TEMP 36.8; O2SAT 96
--- NOTE | 2020-02-14 16:22 | NURSING ---
CALLED DAUGHTER AND UPDATED HER ON PATENT.
[2020-02-14 16:25] LABS: Bedside Glucose 102 mg/dL (70-110)
--- NOTE | 2020-02-14 16:33 | NURSING ---
DAUGHTER CALLED AND UPDATED PATENT.
[2020-02-14 21:05] VITALS: PULSE 65; RESP 16; O2SAT 97
[2020-02-14 21:46] LABS: Bedside Glucose 130 mg/dL (70-110)
[2020-02-15 06:22] LABS: Absolute Lymphocyte Count 1.13 X10^3/uL (0.83-4.51); Basophil# 0.08 X10^3/uL; Basophil% 1.6 % (0-1); Eosinophil# 0.25 X10^3/uL; Hematocrit 36.2 % (40-54); Hemoglobin 10.4 g/dL (13.0-16.5); Lymphocyte # 1.13 X10^3/ul (4.0); Lymphocyte % 22.5 % (19-41); Mean Corp Hgb Conc 28.7 g/dL (32-36); Mean Corpuscular Volume 83.6 fL (80-94); Mean Platelet Vol. 9.4 fl (6.2-12.0); Monocyte# 0.51 X10^3/uL; Monocyte% 10.1 % (0-10); NRBC Flagged by Analyzer 0 % (0-5); Neutrophil # 3.04 X10^3/uL (2.7-7.7); Neutrophil % 60.4 % (47-70); POSITIVE MORPHOLOGY YES; Platelet Count 428 K/mm3 (150-450); RBC Distribution Width CV 25.9 % (11.6-14.6); RBC Distribution Width SD 75.7 fl (35.1-43.9); Red Blood Count 4.33 M/mm3 (4.6-6.2)
[2020-02-15 06:46] VITALS: BP 108/73; PULSE 75; RESP 16; TEMP 36.8; O2SAT 97
[2020-02-15] MEDS: Menthol/Lanolin/Calamine/Znox 113 GM Tube 1 APPLIC TOPICAL ×2 (06:48→21:25)
[2020-02-15] MEDS: Polyethylene Glycol 3350 17 GM PACKET PO (06:49)
[2020-02-15] MEDS: Enoxaparin 40 MG/0.4 ML Syringe SC (06:49)
[2020-02-15] MEDS: Mupirocin Ointment 22gm Tube 1 APPLIC TOPICAL ×2 (06:49→17:27)
[2020-02-15 06:50] VITALS: BP 108/73; PULSE 75
[2020-02-15] MEDS: Pantoprazole Sodium 40 MG Tablet PO (06:50)
[2020-02-15] MEDS: Senna/Docusate Sodium 1 Tablet PO (06:50)
[2020-02-15] MEDS: Levothyroxine 75 MCG Tablet PO (06:50)
[2020-02-15] MEDS: Atorvastatin Calcium 80 MG Tablet PO (06:50)
[2020-02-15] MEDS: Metoprolol(XL)Succ 50 MG Tablet PO (06:50)
[2020-02-15] MEDS: Glucerna Shake 120 ML LIQUID PO ×3 (06:56→21:24)
[2020-02-15 06:58] LABS: Anion Gap 7 (5-15); BUN 21 mg/dL (7-18); BUN/Creat Ratio 20.6 RATIO (10-20); Calcium,Total 9.4 mg/dL (8.5-10.1); Chloride 107 mmol/L (98-107); Creatinine, Serum 1.02 mg/dL (0.70-1.30); EST Glomerular Filtration Rate 76 mL/min (>60); Est Glom Filt Rate - Afr Amer 92 mL/min (>60); Estimated Creatinine Clearance 61.47 ml/min; Glucose 80 mg/dL (74-106); Potassium 4.6 mmol/L (3.5-5.1); Sodium Level 139 mmol/L (136-145)
[2020-02-15 07:06] LABS: Differential Indicated SCAN CRITERIA MET
[2020-02-15 07:36] LABS: Bedside Glucose 90 mg/dL (70-110)
[2020-02-15 07:46] LABS: Anisocytosis 2+; Hypochromasia 2+; Microcytosis 1+; Platelet Estimate ADEQUATE (ADEQ); Polychromasia RARE
[2020-02-15] MEDS: metFORMIN HCl 500 MG Tablet PO ×2 (08:59→17:27)
[2020-02-15] MEDS: Aspirin E.C. 81 MG Tablet PO (08:59)
[2020-02-15] MEDS: Iron Polysaccharide Complex 150 MG CAPSULE PO (08:59)
[2020-02-15] MEDS: Tuberculin,Purif.prot.deriv. 50 TU/ML Vial 5 ML ID (09:37)
[2020-02-15 11:06] LABS: Bedside Glucose 92 mg/dL (70-110)
[2020-02-15] MEDS: oxyCODONE 5 MG Tablet PO (13:55)
[2020-02-15 14:08] VITALS: BP 109/68; PULSE 77; RESP 16; TEMP 36.2; O2SAT 97
[2020-02-15 16:25] LABS: Bedside Glucose 112 mg/dL (70-110)
[2020-02-15 21:10] VITALS: PULSE 78; RESP 16; O2SAT 96
[2020-02-15 21:11] LABS: Bedside Glucose 112 mg/dL (70-110)
[2020-02-15] MEDS: Acetaminophen 500 MG Tablet 1000 MG PO (21:24)
[2020-02-16 05:57] VITALS: BP 112/74; PULSE 75; RESP 16; TEMP 36.8; O2SAT 96
[2020-02-16] MEDS: Glucerna Shake 120 ML LIQUID PO ×4 (06:03→21:07)
[2020-02-16] MEDS: Polyethylene Glycol 3350 17 GM PACKET PO (06:04)
[2020-02-16] MEDS: Enoxaparin 40 MG/0.4 ML Syringe SC (06:05)
[2020-02-16] MEDS: Senna/Docusate Sodium 1 Tablet PO (06:05)
[2020-02-16] MEDS: Pantoprazole Sodium 40 MG Tablet PO (06:05)
[2020-02-16 06:06] VITALS: BP 112/74; PULSE 75
[2020-02-16] MEDS: Atorvastatin Calcium 80 MG Tablet PO (06:06)
[2020-02-16] MEDS: Metoprolol(XL)Succ 50 MG Tablet PO (06:06)
[2020-02-16] MEDS: Levothyroxine 75 MCG Tablet PO (06:06)
[2020-02-16] MEDS: Menthol/Lanolin/Calamine/Znox 113 GM Tube 1 APPLIC TOPICAL ×2 (06:08→21:09)
[2020-02-16 06:21] LABS: Bedside Glucose 84 mg/dL (70-110)
[2020-02-16] MEDS: metFORMIN HCl 500 MG Tablet PO ×2 (08:02→17:17)
[2020-02-16] MEDS: Aspirin E.C. 81 MG Tablet PO (08:02)
[2020-02-16] MEDS: Iron Polysaccharide Complex 150 MG CAPSULE PO (08:02)
[2020-02-16] MEDS: oxyCODONE 5 MG Tablet PO (08:45)
[2020-02-16 11:05] LABS: Bedside Glucose 104 mg/dL (70-110)
[2020-02-16 13:40] VITALS: BP 139/78; PULSE 78; RESP 14; TEMP 36.4; O2SAT 97
--- NOTE | 2020-02-16 16:13 | NURSING ---
Addendum entered by Kassidy Irizarry 02/16/20 17:44: Dr alva updated, new order remeron Original Note: pt has been dropping weight,talked to daughter and significant other and they stated that patent was in another hospital in 2018 and started losing weight do to depression. was started on a med and improved. rn aware.
[2020-02-16 17:00] LABS: Bedside Glucose 92 mg/dL (70-110)
--- NOTE | 2020-02-16 18:21 | NURSING ---
called pt girl friend and updated her on new med for pt.
[2020-02-16] MEDS: Mirtazapine 15 MG Tablet 7.5 MG PO (21:07)
[2020-02-16 21:09] VITALS: PULSE 74; RESP 16; O2SAT 96
[2020-02-16 21:11] LABS: Bedside Glucose 91 mg/dL (70-110)
[2020-02-17 04:00] VITALS: BP 131/74; RESP 16; TEMP 36.9; O2SAT 96
[2020-02-17] MEDS: oxyCODONE 5 MG Tablet PO (04:05)
[2020-02-17 04:06] VITALS: BP 131/74; PULSE 78
[2020-02-17] MEDS: Polyethylene Glycol 3350 17 GM PACKET PO (04:06)
[2020-02-17] MEDS: Levothyroxine 75 MCG Tablet PO (04:06)
[2020-02-17] MEDS: Atorvastatin Calcium 80 MG Tablet PO (04:06)
[2020-02-17] MEDS: Pantoprazole Sodium 40 MG Tablet PO (04:06)
[2020-02-17] MEDS: Senna/Docusate Sodium 1 Tablet PO (04:06)
[2020-02-17] MEDS: Metoprolol(XL)Succ 50 MG Tablet PO (04:06)
[2020-02-17] MEDS: Enoxaparin 40 MG/0.4 ML Syringe SC (04:07)
[2020-02-17] MEDS: Glucerna Shake 120 ML LIQUID PO ×3 (04:13→17:20)
[2020-02-17] MEDS: Menthol/Lanolin/Calamine/Znox 113 GM Tube 1 APPLIC TOPICAL ×2 (04:13→20:10)
[2020-02-17 06:10] LABS: Bedside Glucose 102 mg/dL (70-110)
[2020-02-17] MEDS: Iron Polysaccharide Complex 150 MG CAPSULE PO (08:01)
[2020-02-17] MEDS: Aspirin E.C. 81 MG Tablet PO (08:01)
[2020-02-17] MEDS: metFORMIN HCl 500 MG Tablet PO ×2 (08:01→17:18)
[2020-02-17 11:00] VITALS: PULSE 88; RESP 18; O2SAT 93
[2020-02-17 14:45] VITALS: BP 116/77; PULSE 88; RESP 18; TEMP 36.5; O2SAT 98
[2020-02-17] MEDS: Mirtazapine 15 MG Tablet 7.5 MG PO (20:10)
[2020-02-18] MEDS: Glucerna Shake 120 ML LIQUID PO ×4 (05:43→20:20)
[2020-02-18] MEDS: Enoxaparin 40 MG/0.4 ML Syringe SC (05:43)
[2020-02-18] MEDS: Atorvastatin Calcium 80 MG Tablet PO (05:43)
[2020-02-18 05:44] VITALS: BP 119/74; PULSE 83
[2020-02-18] MEDS: Levothyroxine 75 MCG Tablet PO (05:44)
[2020-02-18] MEDS: Senna/Docusate Sodium 1 Tablet PO ×2 (05:44→17:29)
[2020-02-18] MEDS: Metoprolol(XL)Succ 50 MG Tablet PO (05:44)
[2020-02-18] MEDS: Pantoprazole Sodium 40 MG Tablet PO (05:44)
[2020-02-18] MEDS: Menthol/Lanolin/Calamine/Znox 113 GM Tube 1 APPLIC TOPICAL ×2 (05:47→20:21)
[2020-02-18 06:20] LABS: Bedside Glucose 104 mg/dL (70-110)
[2020-02-18] MEDS: Iron Polysaccharide Complex 150 MG CAPSULE PO (07:51)
[2020-02-18] MEDS: metFORMIN HCl 500 MG Tablet PO ×2 (07:51→17:29)
[2020-02-18] MEDS: Aspirin E.C. 81 MG Tablet PO (07:51)
--- NOTE | 2020-02-18 09:14 | MDS.RN ---
Information for the mds was obtained from review of the clinical record, interview of resident, staff, and direct observation of resident's care.
--- NOTE | 2020-02-18 13:23 | CASEMGMT ---
Social Work Spoke with dtr to discuss DC plans and pt's progress thus far. Informed dtr pt is not very motivated to complete therapy or go into the restroom - he is incontinent, and pt was independent with toileting prior. Dtr stated the cannot assist with that consistently, but that she spoke with nursing the previous day and the pt had not been on his antidepressants. Nursing started him on those meds. Dtr reported when that happened to the pt about two years ago, poor motivation and decrease in independence was the result, but improved once started on the meds. Inquired about the alternative DC plan. Explained skilled and nonskilled HHC and private pay at another SNF. Dtr stated they cannot pay privately so pt would have to DC home with and skilled HHC. SW will continue to follow and await outcome from insurance update 02/16. Zoey Cordova, YESICA MARTINEZ
[2020-02-18 13:50] VITALS: BP 111/76; PULSE 51; RESP 16; TEMP 36.5; O2SAT 97
[2020-02-18] MEDS: Mupirocin Ointment 22gm Tube 1 APPLIC TOPICAL (17:28)
[2020-02-18] MEDS: Mirtazapine 15 MG Tablet 7.5 MG PO (20:24)
[2020-02-19 04:00] VITALS: BP 109/62; PULSE 81; RESP 14; TEMP 36.8; O2SAT 96
[2020-02-19] MEDS: Glucerna Shake 120 ML LIQUID PO ×4 (05:30→20:55)
[2020-02-19 05:35] VITALS: BP 109/62; PULSE 81
[2020-02-19] MEDS: Levothyroxine 75 MCG Tablet PO (05:35)
[2020-02-19] MEDS: Enoxaparin 40 MG/0.4 ML Syringe SC (05:35)
[2020-02-19] MEDS: Atorvastatin Calcium 80 MG Tablet PO (05:35)
[2020-02-19] MEDS: Pantoprazole Sodium 40 MG Tablet PO (05:35)
[2020-02-19] MEDS: Senna/Docusate Sodium 1 Tablet PO ×2 (05:35→17:29)
[2020-02-19] MEDS: Metoprolol(XL)Succ 50 MG Tablet PO (05:35)
[2020-02-19] MEDS: Menthol/Lanolin/Calamine/Znox 113 GM Tube 1 APPLIC TOPICAL ×2 (05:36→20:55)
[2020-02-19] MEDS: Mupirocin Ointment 22gm Tube 1 APPLIC TOPICAL ×2 (05:36→17:28)
[2020-02-19 06:16] LABS: Bedside Glucose 98 mg/dL (70-110)
[2020-02-19] MEDS: Iron Polysaccharide Complex 150 MG CAPSULE PO (07:41)
[2020-02-19] MEDS: metFORMIN HCl 500 MG Tablet PO ×2 (07:41→17:29)
[2020-02-19] MEDS: Aspirin E.C. 81 MG Tablet PO (07:41)
[2020-02-19 08:21] VITALS: PULSE 85; RESP 16; O2SAT 95
--- NOTE | 2020-02-19 10:10 | CASEMGMT ---
Social Work Notified dtr insurance approved with [employer] 02/19. Zoey Cordova, YESICA THOMPSONW
[2020-02-19 13:34] VITALS: BP 127/79; PULSE 91; RESP 18; TEMP 37.1; O2SAT 96
[2020-02-19] MEDS: Mirtazapine 15 MG Tablet 7.5 MG PO (20:55)
[2020-02-20 04:00] VITALS: BP 128/78; PULSE 83; RESP 16; TEMP 36.8; O2SAT 95
[2020-02-20 05:53] VITALS: BP 128/78; PULSE 83
[2020-02-20] MEDS: Metoprolol(XL)Succ 50 MG Tablet PO (05:53)
[2020-02-20] MEDS: Pantoprazole Sodium 40 MG Tablet PO (05:53)
[2020-02-20] MEDS: Atorvastatin Calcium 80 MG Tablet PO (05:53)
[2020-02-20] MEDS: Enoxaparin 40 MG/0.4 ML Syringe SC (05:53)
[2020-02-20] MEDS: Senna/Docusate Sodium 1 Tablet PO ×2 (05:53→18:10)
[2020-02-20] MEDS: Levothyroxine 75 MCG Tablet PO (05:53)
[2020-02-20] MEDS: Menthol/Lanolin/Calamine/Znox 113 GM Tube 1 APPLIC TOPICAL ×2 (05:57→20:14)
[2020-02-20 06:11] LABS: Bedside Glucose 96 mg/dL (70-110)
[2020-02-20] MEDS: Aspirin E.C. 81 MG Tablet PO (07:30)
[2020-02-20] MEDS: Iron Polysaccharide Complex 150 MG CAPSULE PO (07:30)
[2020-02-20] MEDS: metFORMIN HCl 500 MG Tablet PO ×2 (07:30→18:10)
[2020-02-20] MEDS: Glucerna Shake 120 ML LIQUID PO ×3 (11:34→20:13)
[2020-02-20 13:49] VITALS: BP 128/68; PULSE 83; RESP 18; TEMP 36.9; O2SAT 96
[2020-02-20] MEDS: Acetaminophen 500 MG Tablet 1000 MG PO (18:12)
[2020-02-20 20:05] VITALS: PULSE 82; RESP 16; O2SAT 98
[2020-02-20] MEDS: Mirtazapine 15 MG Tablet 7.5 MG PO (20:13)
[2020-02-20 21:06] LABS: Bedside Glucose 117 mg/dL (70-110)
[2020-02-21 04:00] VITALS: BP 110/66; PULSE 70; RESP 16; TEMP 36.8; O2SAT 95
[2020-02-21] MEDS: Glucerna Shake 120 ML LIQUID PO ×4 (05:42→20:00)
[2020-02-21] MEDS: Enoxaparin 40 MG/0.4 ML Syringe SC (05:42)
[2020-02-21] MEDS: Menthol/Lanolin/Calamine/Znox 113 GM Tube 1 APPLIC TOPICAL ×2 (05:42→20:03)
[2020-02-21 05:43] VITALS: BP 110/66; PULSE 70
[2020-02-21] MEDS: Metoprolol(XL)Succ 50 MG Tablet PO (05:43)
[2020-02-21] MEDS: Senna/Docusate Sodium 1 Tablet PO ×2 (05:43→17:33)
[2020-02-21] MEDS: Levothyroxine 75 MCG Tablet PO (05:43)
[2020-02-21] MEDS: Polyethylene Glycol 3350 17 GM PACKET PO (05:43)
[2020-02-21] MEDS: Pantoprazole Sodium 40 MG Tablet PO (05:43)
[2020-02-21] MEDS: Atorvastatin Calcium 80 MG Tablet PO (05:43)
[2020-02-21 06:15] LABS: Bedside Glucose 108 mg/dL (70-110)
[2020-02-21] MEDS: metFORMIN HCl 500 MG Tablet PO ×2 (08:29→17:33)
[2020-02-21] MEDS: Iron Polysaccharide Complex 150 MG CAPSULE PO (08:29)
[2020-02-21] MEDS: Aspirin E.C. 81 MG Tablet PO (08:30)
[2020-02-21 11:15] VITALS: PULSE 82; RESP 18; O2SAT 97
[2020-02-21 14:17] VITALS: BP 106/75; PULSE 92; RESP 18; TEMP 36.6; O2SAT 97
--- NOTE | 2020-02-21 16:24 | NURSING ---
called pt daughter and updated her on her dad.
[2020-02-21] MEDS: Mirtazapine 15 MG Tablet 7.5 MG PO (20:01)
[2020-02-21] MEDS: Acetaminophen 500 MG Tablet 1000 MG PO (20:03)
[2020-02-22 04:00] VITALS: BP 123/74; PULSE 78; RESP 14; TEMP 36.7; O2SAT 94
[2020-02-22 05:13] VITALS: BP 123/74; PULSE 78
[2020-02-22] MEDS: Enoxaparin 40 MG/0.4 ML Syringe SC (05:13)
[2020-02-22] MEDS: Metoprolol(XL)Succ 50 MG Tablet PO (05:13)
[2020-02-22] MEDS: Glucerna Shake 120 ML LIQUID PO ×4 (05:13→20:37)
[2020-02-22] MEDS: Pantoprazole Sodium 40 MG Tablet PO (05:14)
[2020-02-22] MEDS: Atorvastatin Calcium 80 MG Tablet PO (05:14)
[2020-02-22] MEDS: Menthol/Lanolin/Calamine/Znox 113 GM Tube 1 APPLIC TOPICAL ×2 (05:14→20:38)
[2020-02-22] MEDS: Levothyroxine 75 MCG Tablet PO (05:14)
[2020-02-22] MEDS: Senna/Docusate Sodium 1 Tablet PO ×2 (05:14→17:13)
[2020-02-22 06:21] LABS: Absolute Neutrophil Count 2.7 X10^3/uL (2.0-7.7); Basophil# 0.04 X10^3/uL; Basophil% 0.9 % (0-1); Eosinophil# 0.43 X10^3/uL; Eosinophils% 9.3 % (0-5); Hematocrit 34.9 % (40-54); Hemoglobin 10.4 g/dL (13.0-16.5); Lymphocyte % 19.6 % (19-41); Mean Corp Hgb Conc 29.8 g/dL (32-36); Mean Corpuscular Hgb 24.9 pg (27.0-32.0); Mean Corpuscular Volume 83.5 fL (80-94); Mean Platelet Vol. 10.1 fl (6.2-12.0); Monocyte# 0.53 X10^3/uL; Monocyte% 11.5 % (0-10); NRBC Flagged by Analyzer 0 % (0-5); Neutrophil # 2.68 X10^3/uL (2.7-7.7); Neutrophil % 58.3 % (47-70); POSITIVE MORPHOLOGY YES; Platelet Count 265 K/mm3 (150-450); RBC Distribution Width CV 21.4 % (11.6-14.6); RBC Distribution Width SD 66.4 fl (35.1-43.9); Red Blood Count 4.18 M/mm3 (4.6-6.2); White Blood Count 4.6 K/mm3 (4.4-11.0)
[2020-02-22 06:23] LABS: Anion Gap 8 (5-15); BUN 31 mg/dL (7-18); BUN/Creat Ratio 26.7 RATIO (10-20); Calcium,Total 9.4 mg/dL (8.5-10.1); Chloride 105 mmol/L (98-107); Creatinine, Serum 1.16 mg/dL (0.70-1.30); EST Glomerular Filtration Rate 65 mL/min (>60); Est Glom Filt Rate - Afr Amer 79 mL/min (>60); Estimated Creatinine Clearance 52.51 ml/min; Glucose 101 mg/dL (74-106); Potassium 4.4 mmol/L (3.5-5.1); Sodium Level 139 mmol/L (136-145)
[2020-02-22 06:35] LABS: Bedside Glucose 105 mg/dL (70-110)
[2020-02-22 06:45] LABS: Differential Indicated SCAN CRITERIA MET
[2020-02-22] MEDS: Iron Polysaccharide Complex 150 MG CAPSULE PO (08:16)
[2020-02-22] MEDS: Aspirin E.C. 81 MG Tablet PO (08:16)
[2020-02-22] MEDS: metFORMIN HCl 500 MG Tablet PO ×2 (08:17→17:13)
[2020-02-22 08:31] LABS: Anisocytosis 2+; Differential Comment SCANNED; Hypochromasia 1+; Microcytosis 1+
[2020-02-22 14:52] VITALS: BP 129/73; PULSE 89; RESP 18; TEMP 36.7; O2SAT 97
--- NOTE | 2020-02-22 15:30 | NURSING ---
No new updates to report.
[2020-02-22] MEDS: Mirtazapine 15 MG Tablet 7.5 MG PO (20:38)
[2020-02-23 04:00] VITALS: BP 128/74; PULSE 80; RESP 14; TEMP 36.8; O2SAT 96
[2020-02-23] MEDS: Glucerna Shake 120 ML LIQUID PO ×3 (05:11→21:04)
[2020-02-23 05:12] VITALS: BP 128/74; PULSE 80
[2020-02-23] MEDS: Pantoprazole Sodium 40 MG Tablet PO (05:12)
[2020-02-23] MEDS: Enoxaparin 40 MG/0.4 ML Syringe SC (05:12)
[2020-02-23] MEDS: Senna/Docusate Sodium 1 Tablet PO ×2 (05:12→17:54)
[2020-02-23] MEDS: Metoprolol(XL)Succ 50 MG Tablet PO (05:12)
[2020-02-23] MEDS: Menthol/Lanolin/Calamine/Znox 113 GM Tube 1 APPLIC TOPICAL ×2 (05:13→21:05)
[2020-02-23] MEDS: Levothyroxine 75 MCG Tablet PO (05:13)
[2020-02-23] MEDS: Atorvastatin Calcium 80 MG Tablet PO (05:13)
[2020-02-23 06:20] LABS: Bedside Glucose 99 mg/dL (70-110)
[2020-02-23] MEDS: metFORMIN HCl 500 MG Tablet PO ×2 (08:21→17:54)
[2020-02-23] MEDS: Aspirin E.C. 81 MG Tablet PO (08:21)
[2020-02-23] MEDS: Iron Polysaccharide Complex 150 MG CAPSULE PO (08:21)
[2020-02-23 10:00] VITALS: PULSE 86; RESP 16; O2SAT 98
--- NOTE | 2020-02-23 13:47 | CASEMGMT ---
Social Work Notified dtr of insurance NRD 02/25. The plan is to take pt home with . Will continue to follow. Zoey Cordova, DOUGH CUTTING MACHINE OPERATOR LINING PARTS SEWER
[2020-02-23 14:11] VITALS: BP 119/77; PULSE 86; RESP 18; TEMP 36.5; O2SAT 98
[2020-02-23] MEDS: Mirtazapine 15 MG Tablet 7.5 MG PO (21:04)
[2020-02-24 04:00] VITALS: BP 116/68; PULSE 79; RESP 14; TEMP 36.4; O2SAT 94
[2020-02-24 06:16] VITALS: BP 116/68; PULSE 79
[2020-02-24] MEDS: Pantoprazole Sodium 40 MG Tablet PO (06:16)
[2020-02-24] MEDS: Glucerna Shake 120 ML LIQUID PO ×4 (06:16→20:23)
[2020-02-24] MEDS: Atorvastatin Calcium 80 MG Tablet PO (06:16)
[2020-02-24] MEDS: Metoprolol(XL)Succ 50 MG Tablet PO (06:16)
[2020-02-24] MEDS: Senna/Docusate Sodium 1 Tablet PO (06:16)
[2020-02-24] MEDS: Levothyroxine 75 MCG Tablet PO (06:16)
[2020-02-24] MEDS: Enoxaparin 40 MG/0.4 ML Syringe SC (06:18)
[2020-02-24] MEDS: Menthol/Lanolin/Calamine/Znox 113 GM Tube 1 APPLIC TOPICAL ×2 (06:18→20:26)
[2020-02-24 06:31] LABS: Bedside Glucose 90 mg/dL (70-110)
--- NOTE | 2020-02-24 08:24 | NURSING ---
Juan Luis, PT found pt crawling to BR, pt incont stool. pt did not put call light on, alarm in place and pt turned off when getting up out of bed. pt trying to get to BR, states i didn't hurt nothing but my pride. Dr Pang here and in to speak with pt. pt denies hitting head, walked to BR and legs gave out and pt sat on floor. No injury, small abrasion RT wrist. no open areas to coccyx. scab came off old peg site, bandaid placed to protect area, no drng or bleeding. Moved alarm box away from pt reach to prevent this from happening. incont care provided, pt assisted w/walker back to bed x2 assist for safety. call light in reach. vitals stable. will update family.
[2020-02-24 08:27] VITALS: BP 135/81; PULSE 89; RESP 18; TEMP 36.9; O2SAT 99
[2020-02-24] MEDS: Aspirin E.C. 81 MG Tablet PO (09:10)
[2020-02-24] MEDS: metFORMIN HCl 500 MG Tablet PO ×2 (09:10→17:22)
[2020-02-24] MEDS: Iron Polysaccharide Complex 150 MG CAPSULE PO (09:10)
[2020-02-24] MEDS: Acetaminophen 500 MG Tablet 1000 MG PO (10:14)
--- NOTE | 2020-02-24 13:35 | NURSING ---
called daughter to update,no answer, left message.
--- NOTE | 2020-02-24 13:46 | NURSING ---
daughter called back and this nurse updated her on pt and his fall today.
[2020-02-24 14:17] VITALS: BP 130/52; PULSE 81; RESP 17; TEMP 36.3; O2SAT 96
--- NOTE | 2020-02-24 17:08 | PCA ---
pt is incont of urine, voiding in urinals as well as any cup that is left laying around within reach of pt
[2020-02-24 20:15] VITALS: PULSE 80; RESP 18
[2020-02-24] MEDS: Mirtazapine 15 MG Tablet 7.5 MG PO (20:24)
--- NOTE | 2020-02-24 20:29 | NURSING ---
Addendum entered by Leah Barragan 02/24/20 22:11: Patient aware of xray results and new order. Patient states to notify family of this tomorrow. Addendum entered by Leah Barragan 02/24/20 22:06: At 2036 Dr. Pang was notified of patient c/o right shoulder pain. New order given to xray right shoulder. At 2204 Dr. Pang notified of results from xray of right shoulder. Orders given to make an appointment with Dr. Delgado tomorrow. Original Note: Pt was moving his right shoulder and c/o pain states, aching. Rn made aware. No bruising noted to right shoulder doing assessment.
--- NOTE | 2020-02-24 21:00 | RAD_ITS ---
STUDY: X-RAY - RIGHT SHOULDER REASON FOR EXAM: Male, 75 years old. RIGHT SHOULDER PAIN AFTER FALL TECHNIQUE: 4 view(s) of the shoulder. COMPARISON: None. FINDINGS: There is mild to moderate degenerative arthrosis of the glenohumeral articulation. Normal acromioclavicular joint. Normal acromion. High riding humeral head abutting the undersurface of the acromium is compatible with full-thickness rotator cuff tearing. Normal humeral head and visualized proximal humerus. The soft tissue structures are unremarkable. There is no demonstrated fracture. Normal visualized pulmonary apex. RAD/Shoulder min 2 Views IMPRESSION: 1. Mild to moderate joint space narrowing. 2. Full-thickness rotator cuff tearing. Electronically Signed: Jesus Chavez MD at 21:57 EDT , Service support ,
--- NOTE | 2020-02-24 21:00 | RAD_ITS ---
STUDY: X-RAY - PELVIS AND RIGHT HIP REASON FOR EXAM: Male, 75 years old. FALL WITH HIP BRUISING TECHNIQUE: 3 views of the pelvis and hip. COMPARISON: None. FINDINGS: There is a non-specific bowel gas pattern. Normal visualized soft tissue structures. Normal bilateral iliac wings, sacroiliac joints and visualized sacrum. Normal bilateral superior and inferior pubic rami. Normal pubic symphysis. Normal bilateral ischial tuberosities. Moderate bilateral hip arthrosis. RAD/HIP, UNI W/ Pelvis 2-3 Views IMPRESSION: No acute fracture or dislocation pelvis and right hip. Electronically Signed: Marciano Aleman, at 21:56 EDT Tel , Service support ,
[2020-02-25 04:00] VITALS: BP 113/72; PULSE 73; RESP 18; TEMP 36.9; O2SAT 95
[2020-02-25] MEDS: Glucerna Shake 120 ML LIQUID PO ×4 (05:44→20:23)
[2020-02-25 05:45] VITALS: BP 113/72; PULSE 73
[2020-02-25] MEDS: Pantoprazole Sodium 40 MG Tablet PO (05:45)
[2020-02-25] MEDS: Levothyroxine 75 MCG Tablet PO (05:45)
[2020-02-25] MEDS: Metoprolol(XL)Succ 50 MG Tablet PO (05:45)
[2020-02-25] MEDS: Atorvastatin Calcium 80 MG Tablet PO (05:45)
[2020-02-25] MEDS: Senna/Docusate Sodium 1 Tablet PO (05:45)
[2020-02-25] MEDS: Enoxaparin 40 MG/0.4 ML Syringe SC (05:46)
[2020-02-25] MEDS: Menthol/Lanolin/Calamine/Znox 113 GM Tube 1 APPLIC TOPICAL ×2 (05:50→20:26)
[2020-02-25 06:26] LABS: Bedside Glucose 105 mg/dL (70-110)
--- NOTE | 2020-02-25 07:44 | NURSING ---
Called daughter and updated her on xrays taken on her dad.
[2020-02-25] MEDS: metFORMIN HCl 500 MG Tablet PO ×2 (08:12→17:12)
[2020-02-25] MEDS: Iron Polysaccharide Complex 150 MG CAPSULE PO (08:12)
[2020-02-25] MEDS: Aspirin E.C. 81 MG Tablet PO (08:12)
[2020-02-25 08:30] VITALS: PULSE 76; RESP 18; O2SAT 96
--- NOTE | 2020-02-25 09:18 | NURSING ---
Addendum entered by Kassidy Irizarry 02/25/20 10:43: Dr Delgado office returned call, wants pt to f/u after DC Original Note: notified Dr Delgado office per DR Pang order regarding consult or appt for RT shoulder rotator cuff tear PREMA. Snow Blower will notify him to see if Sandy can come here or if pt needs to be transported to office, awaiting return call.
[2020-02-25 14:19] VITALS: BP 125/71; PULSE 83; RESP 18; TEMP 36.6; O2SAT 96
--- NOTE | 2020-02-25 14:46 | NURSING ---
followed up call with daughter.
[2020-02-25] MEDS: Mirtazapine 15 MG Tablet 7.5 MG PO (20:24)
[2020-02-26 04:00] VITALS: BP 134/69; PULSE 70; RESP 18; TEMP 36.8; O2SAT 95
[2020-02-26] MEDS: Glucerna Shake 120 ML LIQUID PO ×4 (06:08→20:00)
[2020-02-26 06:09] VITALS: BP 134/69; PULSE 70
[2020-02-26] MEDS: Metoprolol(XL)Succ 50 MG Tablet PO (06:09)
[2020-02-26] MEDS: Pantoprazole Sodium 40 MG Tablet PO (06:09)
[2020-02-26] MEDS: Enoxaparin 40 MG/0.4 ML Syringe SC (06:09)
[2020-02-26] MEDS: Levothyroxine 75 MCG Tablet PO (06:09)
[2020-02-26] MEDS: Senna/Docusate Sodium 1 Tablet PO ×2 (06:09→17:08)
[2020-02-26] MEDS: Atorvastatin Calcium 80 MG Tablet PO (06:09)
[2020-02-26] MEDS: Menthol/Lanolin/Calamine/Znox 113 GM Tube 1 APPLIC TOPICAL ×2 (06:11→20:05)
[2020-02-26 06:31] LABS: Bedside Glucose 87 mg/dL (70-110)
[2020-02-26] MEDS: Iron Polysaccharide Complex 150 MG CAPSULE PO (07:54)
[2020-02-26] MEDS: Aspirin E.C. 81 MG Tablet PO (07:54)
[2020-02-26] MEDS: metFORMIN HCl 500 MG Tablet PO ×2 (07:54→17:08)
--- NOTE | 2020-02-26 13:11 | NURSING ---
Addendum entered by Halina Rubi 02/26/20 14:42: Appointment scheduled with Dr. Arriola at [facility] on march 09 at 330pm, daughter to transport Original Note: Family was called and stated they were told yesterday that Dr. Delgado wanted to see pt after d/c to discuss his rotator cuff tear and were concerned about him going home before his shoulder was taken care of. Dr. Delgado's office was called and they stated according to the Xray pt needs a reverse total shoulder replacement which neither Dr. Braden nor Dr. Nuno performs, they suggested contacting Dr. Arriola. RN aware
[2020-02-26 13:38] VITALS: BP 113/75; PULSE 88; RESP 14; TEMP 36.7; O2SAT 97
[2020-02-26] MEDS: Mirtazapine 15 MG Tablet 7.5 MG PO (20:01)
[2020-02-26 20:06] VITALS: PULSE 78; RESP 18; O2SAT 97
[2020-02-27 04:00] VITALS: BP 124/72; PULSE 78; RESP 16; TEMP 37; O2SAT 96
[2020-02-27 06:15] LABS: Bedside Glucose 105 mg/dL (70-110)
[2020-02-27] MEDS: Bisacodyl 5 MG Tablet 10 MG PO (06:20)
[2020-02-27 06:21] VITALS: BP 124/72; PULSE 78
[2020-02-27] MEDS: Pantoprazole Sodium 40 MG Tablet PO (06:21)
[2020-02-27] MEDS: Senna/Docusate Sodium 1 Tablet PO ×2 (06:21→17:46)
[2020-02-27] MEDS: Metoprolol(XL)Succ 50 MG Tablet PO (06:21)
[2020-02-27] MEDS: Enoxaparin 40 MG/0.4 ML Syringe SC (06:21)
[2020-02-27] MEDS: Atorvastatin Calcium 80 MG Tablet PO (06:21)
[2020-02-27] MEDS: Menthol/Lanolin/Calamine/Znox 113 GM Tube 1 APPLIC TOPICAL ×2 (06:21→20:38)
[2020-02-27] MEDS: Levothyroxine 75 MCG Tablet PO (06:21)
[2020-02-27] MEDS: Glucerna Shake 120 ML LIQUID PO ×4 (06:22→20:37)
[2020-02-27] MEDS: Polyethylene Glycol 3350 17 GM PACKET PO (06:24)
[2020-02-27] MEDS: Aspirin E.C. 81 MG Tablet PO (07:43)
[2020-02-27] MEDS: metFORMIN HCl 500 MG Tablet PO ×2 (07:43→17:46)
[2020-02-27] MEDS: Iron Polysaccharide Complex 150 MG CAPSULE PO (07:43)
[2020-02-27 08:24] VITALS: PULSE 77; RESP 16; O2SAT 97
--- NOTE | 2020-02-27 12:53 | NURSING ---
alarm noted to be ringing, upon entering room pt was observed self transferring, this nurse assisted pt back into bed and reeducated him on importance of asking for assistance for transfers and pt verbalized understanding. alarm transferred from recliner to his bed, bed locked and in lowest position, call light is in reach.
--- NOTE | 2020-02-27 13:49 | CASEMGMT ---
Social Work Insurance issued LCD 03/01, DC 03/02. Spoke with and is choosing to take pt home. Requesting [facility] PT/OT/SN and BSC and FWW. [place] [facility]. to transport pt. Plan: DC home with 03/02 with [facility] PT/OT/SN, [employer] - FWW, BSC Zoey Cordova, RELATIONS MANAGER TECHNICAL MANAGER
[2020-02-27 14:25] VITALS: BP 120/73; PULSE 86; RESP 16; TEMP 36.4; O2SAT 97
--- NOTE | 2020-02-27 14:25 | PCM.DC ---
- Discharge Diagnoses Current Active Problems: Current Active and Chronic Problems Debility (Acute) Pneumoperitoneum (Acute) Gastric perforation (Acute) Acute blood loss anemia (Acute) Septic shock (Acute) Hypertension (Chronic) Coronary artery disease (Chronic) Osteoarthritis (Chronic) Hyperlipidemia (Chronic) Diabetes mellitus (Chronic) Depression (Chronic) Hypothyroidism (Chronic) You will use the following diet at home:: No restrictions, Regular Your food should be the consistency of: Regular Your liquids should be the consistency of: Regular/Thin Discharge Activity: Return to Normal Activity, May Shower, Use Walker Weight Bearing Status: Weight bearing as tolerated Call your doctor if you observe: Fever of 101 or Higher, Inability to urinate, Inability to have a bowel movement, Shortness of breath, Chest pain, Uncontrolled pain Allergies/Adverse Reactions: Allergies No Known Allergies Allergy (Verified 02/07/20 15:22) Medications to take at Discharge Aspirin E.C. [Ecotrin] 81 mg PO DAILY@0800 02/07/20 L. Rhamnosus GG/Inulin [Culturelle Digest 10B Cell Cap] 1 ea PO DAILY 02/07/20 Levothyroxine [Synthroid] 75 mcg PO DAILY 02/07/20 metFORMIN HCl [Glucophage] 500 mg PO BIDCM 02/07/20 Acetaminophen [Tylenol] 1,000 mg PO Q6H PRN PRN tab 02/27/20 Atorvastatin Calcium [Lipitor] 80 mg PO DAILY #30 tab 02/27/20 Iron Polysaccharide Complex [Ferrex 150] 150 mg PO DAILYCM #30 cap 02/27/20 Menthol/Lanolin/Calamine/Znox [Calmoseptine Ointment] 1 applic TOPICAL 0600,2200 tube 02/27/20 Metoprolol Succinate [Toprol Xl] 50 mg PO DAILY #30 02/27/20 Mirtazapine [Remeron] 7.5 mg PO QHS #30 tab 02/27/20 Pantoprazole Sodium [Protonix] 40 mg PO DAILY #30 tab 02/27/20 The following prescriptions were given: Iron Polysaccharide Complex [Ferrex 150] 150 mg PO DAILYCM #30 cap Prescription Printed Atorvastatin Calcium [Lipitor] 80 mg PO DAILY #30 tab Prescription Printed Pantoprazole Sodium [Protonix] 40 mg PO DAILY #30 tab Prescription Printed Mirtazapine [Remeron] 7.5 mg PO QHS #30 tab Prescription Printed Metoprolol Succinate [Toprol Xl] 50 mg PO DAILY #30 Prescription Printed Please follow up with your Primary Care Physician in: 1 week. Test Results: Test results from this visit will be discussed in further detail at your follow-up appointment, if applicable. Please Follow Up With: Konstantin Shepard (general surgeon) Please Follow Up With: Elijah Musa (insulation worker) Please Follow Up With: Eloisa Negrete (Infectious disease) When: ?? Please Follow Up With: Hardy Arriola MD - Full thickness right rotator cuff tear. When: 03/09/2020 Proposed Discharge Date: 03/02/20
--- NOTE | 2020-02-27 14:30 | PCM.DC.SUM ---
Discharge Date and Diagnosis - Problem List Patient Problems: Active and Suspected Problems Debility (Acute) Pneumoperitoneum (Acute) Gastric perforation (Acute) Acute blood loss anemia (Acute) Septic shock (Acute) Date of Admission: 02/07/20 Date of Discharge: 03/02/20 - Primary Discharge Diagnosis Acute Problems: Active Problems Debility (Acute) Pneumoperitoneum (Acute) Gastric perforation (Acute) Acute blood loss anemia (Acute) Septic shock (Acute) - Secondary Discharge Diagnosis Chronic Problems: Chronic Problems Hypertension (Chronic) Coronary artery disease (Chronic) Osteoarthritis (Chronic) Hyperlipidemia (Chronic) Diabetes mellitus (Chronic) Depression (Chronic) Hypothyroidism (Chronic) Hospital Course and Treatment Imaging Results: 02/07/20 14:04 Diet: Regular Diet Food consistency:: Mechanical Soft/Ground Liquid Consistency:: Regular/Thin Is pt able to select menu?: Yes Diet Comments: low fiber Clinical Impression(s) from Imaging Studies Hip/Pelvis X-Ray 02/24/20 21:00 IMPRESSION: No acute fracture or dislocation pelvis and right hip. Electronically Signed: Marciano Aleman at 21:56 EDT Tel , Service support , Shoulder X-Ray 02/24/20 21:00 IMPRESSION: 1. Mild to moderate joint space narrowing. 2. Full-thickness rotator cuff tearing. Electronically Signed: Jesus Chavez MD at 21:57 EDT , Service support , Labs (Last 48 Hours) 02/26/20 02/27/20 06:16 06:01 POC Glucose 87 105 Operations: None Procedures: None Summary of Care Provided: The patient is a 75 year old Male with below past medical history hospitalized for gastric perforation, underwent Tanmay patch repair with pyloroplasty 01/26/2020, admitted to TCU with debility, here for rehabilitation, strengthening, prior to discharge home with . 02/24/2020 Resident fell, injured right hip, right shoulder, right hip X-ray okay, right shoulder X-ray showed full thickness rotator cuff tear. Follow up with Dr. Mik Arriola 03/09/2020 regarding right rotator cuff tear. Discharge home with fiance, [facility] PT/OT/SN, bedside commode, front wheeled walker. Patient Problems: Active and Suspected Problems Debility (Acute) Pneumoperitoneum (Acute) Gastric perforation (Acute) Acute blood loss anemia (Acute) Septic shock (Acute) - Physical Exam Vitals/I&O's: Vital Signs Temp Pulse Resp BP Pulse Ox 97.6 F L 86 16 120/73 97 02/27/20 14:25 02/27/20 14:25 02/27/20 14:25 02/27/20 14:25 02/27/20 14:25 Oxygen Delivery Method Room Air Weight: 65.856 kg Body Mass Index (BMI) 26.6 Intake and Output for Last 24 Hours 02/25/20 02/26/20 02/27/20 23:59 23:59 23:59 Intake Total 600 / 600 840 / 840 480 / 480 Balance 600 / 600 840 / 840 480 / 480 Laboratory Results 02/27/20 06:01: POC Glucose 105 Current Medications Acetaminophen (Tylenol) 1,000 mg PO Q6H PRN PRN PRN Reason: Pain Score 1-3/10 Last Admin: 02/24/20 10:14 Dose: 1,000 mg Documented by: Aspirin (Ecotrin) 81 mg PO DAILY@0800 [facility] Last Admin: 02/27/20 07:43 Dose: 81 mg Documented by: Atorvastatin Calcium (Lipitor) 80 mg PO DAILY [facility] Last Admin: 02/27/20 06:21 Dose: 80 mg Documented by: Bisacodyl (Dulcolax) 10 mg PO DAILY PRN PRN PRN Reason: Constipation Last Admin: 02/27/20 06:20 Dose: 10 mg Documented by: Calamine/Phenol (Calmoseptine Ointment) 1 applic TOPICAL 0600,2200 [facility]; Protocol Last Admin: 02/27/20 06:21 Dose: 1 applicatio Documented by: Enoxaparin Sodium (Lovenox) 40 mg SC DAILY@0600 [facility] Last Admin: 02/27/20 06:21 Dose: 40 mg Documented by: Glucagon () 1 mg IM DAILY PRN PRN Reason: Blood glucose Lactobacillus Acidophilus (Acidophilus) 1 tablet PO BID [facility] Last Admin: 02/27/20 06:21 Dose: 1 tablet Documented by: Levothyroxine Sodium (Synthroid) 75 mcg PO DAILY [facility] Last Admin: 02/27/20 06:21 Dose: 75 mcg Documented by: [facility] Last Admin: 02/27/20 07:43 Dose: 500 mg Documented by: Metoprolol Succinate (Toprol Xl (Beta Carmelina)) 50 mg PO DAILY [facility] Last Admin: 02/27/20 06:21 Dose: 50 mg Documented by: Mirtazapine (Remeron) 7.5 mg PO QHS [facility] Last Admin: 02/26/20 20:01 Dose: 7.5 mg Documented by: Nutritional Formula (Lactose Free) (Glucerna Shake) 120 ml PO 4X/DAY [facility] Last Admin: 02/27/20 11:00 Dose: 120 ml Documented by: Olanzapine (Zyprexa Zydis) 2.5 mg PO QHS PRN PRN Reason: INSOMNIA Last Admin: 02/07/20 20:34 Dose: 2.5 mg Documented by: Ondansetron HCl (Zofran) 4 mg IV Q4H PRN PRN PRN Reason: NAUSEA Oxycodone HCl (Oxyir) 5 mg PO Q4H PRN PRN PRN Reason: Pain Score 4-10/10 Last Admin: 02/17/20 04:05 Dose: 5 mg Documented by: Pantoprazole Sodium (Protonix) 40 mg PO DAILY [facility] Last Admin: 02/27/20 06:21 Dose: 40 mg Documented by: Polyethylene Glycol (Miralax) 17 gm PO DAILY [facility] Last Admin: 02/27/20 06:24 Dose: 17 gm Documented by: Polysaccharide Iron [facility]rex 150) [facility] Stop: 03/10/20 08:01 Last Admin: 02/27/20 07:43 Dose: 150 mg Documented by: Senna/Docusate Sodium (Senokot-S, Celeste-Colace) 1 tablet PO BID [facility] Last Admin: 02/27/20 06:21 Dose: 1 tablet Documented by: Sodium Chloride () 250 ml IV PRN PRN PRN Reason: IV flush Discharge Diet: No Restrictions Discharge Activity: Return to Normal Activity, May Shower, Use Walker Weight Bearing Status: Weight bearing as tolerated Call your doctor if you observe: Fever of 101 or Higher, Inability to urinate, Inability to have a bowel movement, Shortness of breath, Chest pain, Uncontrolled pain Home Medications: Medications to take at Discharge Aspirin E.C. [Ecotrin] 81 mg PO DAILY@0800 02/07/20 L. Rhamnosus GG/Inulin [Culturelle Digest 10B Cell Cap] 1 ea PO DAILY 02/07/20 Levothyroxine [Synthroid] 75 mcg PO DAILY 02/07/20 metFORMIN HCl [Glucophage] 500 mg PO BIDCM 02/07/20 Acetaminophen [Tylenol] 1,000 mg PO Q6H PRN PRN tab 02/27/20 Atorvastatin Calcium [Lipitor] 80 mg PO DAILY #30 tab 02/27/20 Iron Polysaccharide Complex [Ferrex 150] 150 mg PO DAILYCM #30 cap 02/27/20 Menthol/Lanolin/Calamine/Znox [Calmoseptine Ointment] 1 applic TOPICAL 0600,2200 tube 02/27/20 Metoprolol Succinate [Toprol Xl] 50 mg PO DAILY #30 02/27/20 Mirtazapine [Remeron] 7.5 mg PO QHS #30 tab 02/27/20 Pantoprazole Sodium [Protonix] 40 mg PO DAILY #30 tab 02/27/20 Following Prescrptions Were Given to Patient: Iron Polysaccharide Complex [Ferrex 150] 150 mg PO DAILYCM #30 cap Prescription Printed Atorvastatin Calcium [Lipitor] 80 mg PO DAILY #30 tab Prescription Printed Pantoprazole Sodium [Protonix] 40 mg PO DAILY #30 tab Prescription Printed Mirtazapine [Remeron] 7.5 mg PO QHS #30 tab Prescription Printed Metoprolol Succinate [Toprol Xl] 50 mg PO DAILY #30 Prescription Printed Please follow up with your Primary Care Physician in: 1 week. Please Follow Up With: Konstantin hSepard (general surgeon) Please Follow Up With: Elijah Musa (surgical supervisor) Please Follow Up With: Eloisa Negrete (Infectious disease) When: ?? Please Follow Up With: Hardy Arriola MD - Full thickness right rotator cuff tear. When: 03/09/2020 Disposition: Home with Home Health Minutes spent on discharge:: 35 Patient Condition:: Stable Medical Necessity - Tobacco Use Smoking Status: Former smoker Tobacco Use: Cigars Meaningful Use Info Meaningful Use Diagnoses (Choose all that apply): None applicable
[2020-02-27] MEDS: Mirtazapine 15 MG Tablet 7.5 MG PO (20:36)
[2020-02-28] MEDS: Glucerna Shake 120 ML LIQUID PO ×4 (05:38→20:32)
[2020-02-28 05:40] VITALS: BP 113/77; PULSE 72
[2020-02-28] MEDS: Metoprolol(XL)Succ 50 MG Tablet PO (05:40)
[2020-02-28] MEDS: Levothyroxine 75 MCG Tablet PO (05:40)
[2020-02-28] MEDS: Pantoprazole Sodium 40 MG Tablet PO (05:40)
[2020-02-28] MEDS: Senna/Docusate Sodium 1 Tablet PO ×2 (05:40→18:01)
[2020-02-28] MEDS: Polyethylene Glycol 3350 17 GM PACKET PO (05:40)
[2020-02-28] MEDS: Atorvastatin Calcium 80 MG Tablet PO (05:40)
[2020-02-28] MEDS: Enoxaparin 40 MG/0.4 ML Syringe SC (05:44)
[2020-02-28] MEDS: Menthol/Lanolin/Calamine/Znox 113 GM Tube 1 APPLIC TOPICAL ×2 (05:45→20:33)
[2020-02-28 05:46] VITALS: RESP 16; TEMP 37; O2SAT 96
[2020-02-28 06:11] LABS: Bedside Glucose 92 mg/dL (70-110)
[2020-02-28] MEDS: Iron Polysaccharide Complex 150 MG CAPSULE PO (07:30)
[2020-02-28] MEDS: Aspirin E.C. 81 MG Tablet PO (07:30)
[2020-02-28] MEDS: metFORMIN HCl 500 MG Tablet PO ×2 (07:30→18:01)
[2020-02-28 15:02] VITALS: BP 135/78; PULSE 81; RESP 14; TEMP 36.6; O2SAT 96
[2020-02-28] MEDS: Mirtazapine 15 MG Tablet 7.5 MG PO (20:32)
[2020-02-28] MEDS: oxyCODONE 5 MG Tablet PO (20:38)
[2020-02-28 20:39] VITALS: PULSE 80; RESP 16; O2SAT 94
[2020-02-29 05:39] VITALS: BP 117/65; PULSE 73
[2020-02-29] MEDS: Pantoprazole Sodium 40 MG Tablet PO (05:39)
[2020-02-29] MEDS: Metoprolol(XL)Succ 50 MG Tablet PO (05:39)
[2020-02-29] MEDS: Polyethylene Glycol 3350 17 GM PACKET PO (05:39)
[2020-02-29] MEDS: Enoxaparin 40 MG/0.4 ML Syringe SC (05:39)
[2020-02-29] MEDS: Atorvastatin Calcium 80 MG Tablet PO (05:39)
[2020-02-29] MEDS: Senna/Docusate Sodium 1 Tablet PO ×2 (05:39→18:04)
[2020-02-29] MEDS: Levothyroxine 75 MCG Tablet PO (05:39)
[2020-02-29] MEDS: Glucerna Shake 120 ML LIQUID PO ×4 (05:45→20:06)
[2020-02-29 05:47] VITALS: RESP 16; TEMP 36.6; O2SAT 92
[2020-02-29] MEDS: Menthol/Lanolin/Calamine/Znox 113 GM Tube 1 APPLIC TOPICAL ×2 (05:47→20:09)
[2020-02-29 06:21] LABS: Bedside Glucose 99 mg/dL (70-110)
[2020-02-29 06:23] LABS: Absolute Lymphocyte Count 0.92 X10^3/uL (0.83-4.51); Basophil# 0.03 X10^3/uL; Basophil% 0.6 % (0-1); Eosinophil# 0.62 X10^3/uL; Eosinophils% 12.2 % (0-5); Hematocrit 36.1 % (40-54); Hemoglobin 10.8 g/dL (13.0-16.5); Lymphocyte # 0.92 X10^3/ul (4.0); Lymphocyte % 18.1 % (19-41); Mean Corp Hgb Conc 29.9 g/dL (32-36); Mean Corpuscular Hgb 25.1 pg (27.0-32.0); Mean Corpuscular Volume 83.8 fL (80-94); Mean Platelet Vol. 9.7 fl (6.2-12.0); Monocyte# 0.53 X10^3/uL; Monocyte% 10.5 % (0-10); NRBC Flagged by Analyzer 0 % (0-5); Neutrophil # 2.95 X10^3/uL (2.7-7.7); Neutrophil % 58.2 % (47-70); Platelet Count 220 K/mm3 (150-450); RBC Distribution Width CV 19.1 % (11.6-14.6); RBC Distribution Width SD 59.6 fl (35.1-43.9); Red Blood Count 4.31 M/mm3 (4.6-6.2); White Blood Count 5.1 K/mm3 (4.4-11.0)
[2020-02-29 06:50] LABS: Anion Gap 6 (5-15); BUN 25 mg/dL (7-18); BUN/Creat Ratio 21.7 RATIO (10-20); Calcium,Total 9.6 mg/dL (8.5-10.1); Chloride 106 mmol/L (98-107); Creatinine, Serum 1.15 mg/dL (0.70-1.30); EST Glomerular Filtration Rate 66 mL/min (>60); Est Glom Filt Rate - Afr Amer 80 mL/min (>60); Estimated Creatinine Clearance 52.49 ml/min; Glucose 87 mg/dL (74-106); Potassium 4.6 mmol/L (3.5-5.1); Sodium Level 137 mmol/L (136-145)
[2020-02-29] MEDS: Aspirin E.C. 81 MG Tablet PO (08:37)
[2020-02-29] MEDS: Iron Polysaccharide Complex 150 MG CAPSULE PO (08:37)
[2020-02-29] MEDS: metFORMIN HCl 500 MG Tablet PO ×2 (08:37→18:04)
[2020-02-29 09:07] VITALS: PULSE 82; RESP 16; O2SAT 97
[2020-02-29 15:31] VITALS: BP 120/76; PULSE 93; RESP 16; TEMP 36.7; O2SAT 98
[2020-02-29] MEDS: Mirtazapine 15 MG Tablet 7.5 MG PO (20:06)
[2020-03-01] MEDS: Glucerna Shake 120 ML LIQUID PO ×4 (05:48→20:59)
[2020-03-01 05:50] VITALS: BP 124/71; PULSE 76
[2020-03-01] MEDS: Atorvastatin Calcium 80 MG Tablet PO (05:50)
[2020-03-01] MEDS: Senna/Docusate Sodium 1 Tablet PO ×2 (05:50→17:17)
[2020-03-01] MEDS: Levothyroxine 75 MCG Tablet PO (05:50)
[2020-03-01] MEDS: Polyethylene Glycol 3350 17 GM PACKET PO (05:50)
[2020-03-01] MEDS: Metoprolol(XL)Succ 50 MG Tablet PO (05:50)
[2020-03-01] MEDS: Enoxaparin 40 MG/0.4 ML Syringe SC (05:50)
[2020-03-01] MEDS: Pantoprazole Sodium 40 MG Tablet PO (05:50)
[2020-03-01] MEDS: Menthol/Lanolin/Calamine/Znox 113 GM Tube 1 APPLIC TOPICAL ×2 (05:54→20:59)
[2020-03-01 05:55] VITALS: RESP 16; TEMP 36.3; O2SAT 96
[2020-03-01 06:26] LABS: Bedside Glucose 113 mg/dL (70-110)
[2020-03-01] MEDS: metFORMIN HCl 500 MG Tablet PO ×2 (09:00→17:17)
[2020-03-01] MEDS: Iron Polysaccharide Complex 150 MG CAPSULE PO (09:00)
[2020-03-01] MEDS: Aspirin E.C. 81 MG Tablet PO (09:00)
[2020-03-01 14:08] VITALS: BP 117/59; PULSE 85; RESP 16; TEMP 36.8; O2SAT 98
[2020-03-01 20:50] VITALS: PULSE 86; RESP 16; O2SAT 94
[2020-03-01] MEDS: Mirtazapine 15 MG Tablet 7.5 MG PO (20:58)
[2020-03-02 04:00] VITALS: BP 115/67; PULSE 79; RESP 16; TEMP 37; O2SAT 96
[2020-03-02] MEDS: Glucerna Shake 120 ML LIQUID PO (05:18)
[2020-03-02 05:20] VITALS: BP 115/67; PULSE 78
[2020-03-02] MEDS: Senna/Docusate Sodium 1 Tablet PO (05:20)
[2020-03-02] MEDS: Pantoprazole Sodium 40 MG Tablet PO (05:20)
[2020-03-02] MEDS: Enoxaparin 40 MG/0.4 ML Syringe SC (05:20)
[2020-03-02] MEDS: Metoprolol(XL)Succ 50 MG Tablet PO (05:20)
[2020-03-02] MEDS: Atorvastatin Calcium 80 MG Tablet PO (05:20)
[2020-03-02] MEDS: Levothyroxine 75 MCG Tablet PO (05:20)
[2020-03-02] MEDS: Menthol/Lanolin/Calamine/Znox 113 GM Tube 1 APPLIC TOPICAL (05:24)
[2020-03-02 06:16] LABS: Bedside Glucose 115 mg/dL (70-110)
[2020-03-02] MEDS: Iron Polysaccharide Complex 150 MG CAPSULE PO (07:55)
[2020-03-02] MEDS: metFORMIN HCl 500 MG Tablet PO (07:55)
[2020-03-02] MEDS: Aspirin E.C. 81 MG Tablet PO (07:55)
[2020-03-02 09:25] VITALS: PULSE 84; RESP 18; O2SAT 96
[2020-03-02 09:29] VITALS: BP 143/70; PULSE 84; RESP 16; TEMP 36.8; O2SAT 96
[2020-03-02 10:40] VITALS: BP 143/70; PULSE 84; RESP 16; TEMP 36.8; O2SAT 96
== END 2020-03-02 10:42 | disposition home health service (06) | DRG 949 ==
PROVIDERS: Admitting Provider Family Medicine Geriatric Medicine; Visit Provider Family Medicine Geriatric Medicine
DX: Z48.815 Encounter for surgical aftercare following surgery on the digestive system (principal); D62 Acute posthemorrhagic anemia; S46.011A Strain of muscle(s) and tendon(s) of the rotator cuff of right shoulder, initial encounter; S79.911A Unspecified injury of right hip, initial encounter; I25.10 Atherosclerotic heart disease of native coronary artery without angina pectoris; E11.9 Type 2 diabetes mellitus without complications; E78.5 Hyperlipidemia, unspecified; M19.90 Unspecified osteoarthritis, unspecified site; K21.9 Gastro-esophageal reflux disease without esophagitis; I10 Essential (primary) hypertension; F32.9 Major depressive disorder, single episode, unspecified; E03.9 Hypothyroidism, unspecified; Z87.891 Personal history of nicotine dependence; W19.XXXA Unspecified fall, initial encounter; Y93.9 Activity, unspecified; Y92.129 Unspecified place in nursing home as the place of occurrence of the external cause
CPT/HCPCS: 36415; 73030; 73502; 80048; 82962; 85025; 87635; 92523; 97110; 97116; 97162; 97165; 97530; 97535; 97802; G2023; U0004